=== PATIENT | male | born 1980 | race Caucasian/White ===

== ENCOUNTER 2021-01-01 14:09 | Emergency (ER) | payer OTHER ==
[2021-01-01 16:14] LABS: Absolute Lymphocytes (CBC) 1.5 K/uL (0.7-4.9); Basophils % 0.7 % (0-1.3); Hematocrit 46.9 % (39.6-49.0); Lymphocytes % 15.3 % (15.3-44.8); MPV 9.6 fL (7.6-11.3); RBC Red Blood Cell Count 5.71 M/uL (4.33-5.43)
[2021-01-01 16:22] LABS: Protime INR 0.89
--- NOTE | 2021-01-01 16:23 | RAD REPORT ---
EXAM DESCRIPTION: CT - Head Brain Wo Cont - 01/01/2021 4:09 pm CLINICAL HISTORY: Headache COMPARISON: 2009 TECHNIQUE: Computed axial tomography of the head was obtained. IV contrast was not requested. All CT scans are performed using dose optimization technique as appropriate and may include automated exposure control or mA/KV adjustment according to patient size. FINDINGS: An intracranial bleed is not seen . The ventricles are normal in caliber. No extra-axial fluid collection is noted. Fluid within the sinuses/ mastoids is not seen. IMPRESSION: No acute intracranial abnormality is seen. If patient's symptoms persist MRI of the bra in would be recommended.
[2021-01-01 16:40] LABS: ALT/SGPT 61 U/L (12-78); AST/SGOT 28 U/L (15-37); Alkaline Phosphatase 104 U/L (45-117); BUN Blood Urea Nitrogen 7 mg/dL (7-18); Bicarbonate 28 mmol/L (21-32); Bilirubin Direct 0.1 mg/dL (0-0.2); Bilirubin Total 0.5 mg/dL (0.2-1.0); Glucose Level 82 mg/dL (74-106); Magnesium 2.1 mg/dL (1.8-2.4); NT PRO-BNP 13 pg/mL (<125); Potassium 3.7 mmol/L (3.5-5.1); Protein, Total 7.4 g/dL (6.4-8.2); Sodium Level 139 mmol/L (136-145); Troponin (Emerg Dept Use Only) < 0.02 ng/mL (0.0-0.045)
--- NOTE | 2021-01-01 16:54 | RAD REPORT ---
EXAM DESCRIPTION: Elsi Single View01/01/2021 4:32 pm CLINICAL HISTORY: Hypertension COMPARISON: 2010 FINDINGS: The lungs appear clear of acute infiltrate. The heart is normal size IMPRESSION: No acute abnormalities displayed
--- NOTE | 2021-01-01 16:57 | EDPHYS ---
Physician Documentation [facility] Name: Basil Brantley Age: 40 yrs Sex: Male : 1980 Arrival Date: 01/01/2021 Time: 14:10 Bed 20 Private MD: ED Physician Tom Connor HPI: 01/01 16:12 This 40 yrs old Male presents to ER via EMS with complaints of High Blood kb Pressure. 16:12 The patient has elevated blood pressure and discovered this at home, with a home kb device. Onset: The symptoms/episode began/occurred 1 month(s) ago. Associated signs and symptoms: Pertinent positives: headache, lightheadedness, Pertinent negatives: chest pain, dizziness, dyspnea, nausea, visual changes, vomiting, weakness. Severity of symptoms: At its worst the blood pressure was 160 mm Hg, in the emergency department the blood pressure is improved, 136 mm Hg. The patient has not experienced similar symptoms in the past. The patient has not recently seen a physician. Pt reports he has had elevated blood pressure intermittently for a month. STates he started having headaches so his gf checked his pressure and it was 160/90. States he woke up from a headache last night and felt like his muscles were all tensed up. Feeling started coming back this afternoon so he called 911 to come here for evaluation. Historical: - Allergies: 14:12 No Known Allergies; sv - PSHx: 14:12 ACL reconstruction, Right shoulder repair; sv - Immunization history:: Adult Immunizations up to date. - Social history:: Smoking status: Patient denies any tobacco usage or history of. ROS: 16:10 Constitutional: Negative for fever, chills, and weight loss, Cardiovascular: Negative kb for chest pain, palpitations, and edema, Respiratory: Negative for shortness of breath, cough, wheezing, and pleuritic chest pain, Abdomen/GI: Negative for abdominal pain, nausea, vomiting, diarrhea, and constipation, Skin: Negative for injury, rash, and discoloration. 16:10 MS/extremity: Positive for muscle spasms/cramps. 16:10 Neuro: Positive for headache. Exam: 16:10 Constitutional: This is a well developed, well nourished patient who is awake, alert, kb and in no acute distress. Head/Face: Normocephalic, atraumatic. Eyes: Pupils equal round and reactive to light, extra-ocular motions intact. Lids and lashes normal. Conjunctiva and sclera are non-icteric and not injected. Cornea within normal limits. Periorbital areas with no swelling, redness, or edema. Chest/axilla: Normal chest wall appearance and motion. Nontender with no deformity. No lesions are appreciated. Cardiovascular: Regular rate and rhythm with a normal S1 and S2. No gallops, murmurs, or rubs. Normal PMI, no JVD. No pulse deficits. Respiratory: Lungs have equal breath sounds bilaterally, clear to auscultation and percussion. No rales, rhonchi or wheezes noted. No increased work of breathing, no retractions or nasal flaring. Abdomen/GI: Soft, non-tender, with normal bowel sounds. No distension or tympany. No guarding or rebound. No evidence of tenderness throughout. Skin: Warm, dry with normal turgor. Normal color with no rashes, no lesions, and no evidence of cellulitis. MS/ Extremity: Pulses equal, no cyanosis. Neurovascular intact. Full, normal range of motion. Neuro: Awake and alert, GCS 15, oriented to person, place, time, and situation. Cranial nerves II-XII grossly intact. Motor strength 5/5 in all extremities. Sensory grossly intact. Cerebellar exam normal. Normal gait. 16:10 ECG was reviewed by the Attending Physician. Vital Signs: 14:12 BP 136 / 86; Pulse 72; Resp 16; Temp 98.7; Pulse Ox 100% ; Weight 86.18 kg; Height 5 sv ft. 7 in. (170.18 cm); 16:30 BP 130 / 82; Pulse 82; Resp 16; Pulse Ox 100% on R/A; zb 14:12 Body Mass Index 29.76 (86.18 kg, 170.18 cm) sv MDM: 15:40 Patient medically screened. kb 16:10 Data reviewed: vital signs, nurses notes. Data interpreted: Pulse oximetry: on room air kb is 100 %. Interpretation: normal. 16:56 Counseling: I had a detailed discussion with the patient and/or guardian regarding: the kb historical points, exam findings, and any diagnostic results supporting the discharge/admit diagnosis, lab results, radiology results, the need for outpatient follow up, a family practitioner, to return to the emergency department if symptoms worsen or persist or if there are any questions or concerns that arise at home. 01/01 15:50 Order name: Basic Metabolic Panel kb 01/01 15:50 Order name: CBC with Diff kb 01/01 15:50 Order name: LFT's kb 01/01 15:50 Order name: Magnesium; Complete Time: 16:44 kb 01/01 15:50 Order name: NT PRO-BNP; Complete Time: 16:44 kb 01/01 15:50 Order name: PT-INR; Complete Time: 16:31 kb 01/01 15:50 Order name: Troponin (emerg Dept Use Only); Complete Time: 16:44 kb 01/01 15:50 Order name: XRAY Chest (1 view); Complete Time: 16:57 kb 01/01 15:50 Order name: EKG; Complete Time: 15:51 kb 01/01 15:50 Order name: Cardiac monitoring; Complete Time: 15:59 kb 01/01 15:50 Order name: CT Head Brain wo Cont; Complete Time: 16:26 kb 01/01 15:50 Order name: Basic Metabolic Panel; Complete Time: 16:44 EDMS 01/01 15:50 Order name: CBC with Automated Diff; Complete Time: 16:17 EDMS 01/01 15:50 Order name: Liver (Hepatic) Function; Complete Time: 16:44 EDMS 01/01 15:50 Order name: EKG - Nurse/Tech; Complete Time: 15:59 kb 01/01 15:50 Order name: IV Saline Lock; Complete Time: 15:59 kb 01/01 15:50 Order name: Labs collected and sent; Complete Time: 16:07 kb 01/01 15:50 Order name: O2 Per Protocol; Complete Time: 15:59 kb 01/01 15:50 Order name: O2 Sat Monitoring; Complete Time: 15:59 kb EC:10 Rate is 51 beats/min. Rhythm is regular. QRS Effie is Normal. VT interval is normal at kb 150 msec. QRS interval is normal at 98 msec. QT interval is normal at 384 msec. Administered Medications: No medications were administered Disposition: 17:31 Co-signature as Attending Physician, Tom Connor MD I agree with the assessment and kdr plan of care. Disposition: 01/01/21 16:56 Discharged to Home. Impression: Essential (primary) hypertension. - Condition is Stable. - Discharge Instructions: Hypertension, Knet-[id number], Managing Your Hypertension. - Medication Reconciliation Form, Thank You Letter, Antibiotic Education, Prescription Opioid Use form. - Follow up: Emergency Department; When: As needed; Reason: Worsening of condition. Follow up: Private Physician; When: 2 - 3 days; Reason: Recheck today's complaints, Continuance of care, Re-evaluation by your physician. Signatures: Dispatcher [employer] EDMS Nancy Hackett, LUCIA-C CHART SNATCHER-Talia Birmingham, RN RN sv Tom Connor MD MD kdr Brown, Zipporah, RN RN zb Corrections: (The following items were deleted from the chart) 17:17 16:56 01/01/2021 16:56 Discharged to Home. Impression: Essential (primary) zb hypertension. Condition is Stable. Forms are Medication Reconciliation Form, Thank You Letter, Antibiotic Education, Prescription Opioid Use. Follow up: Emergency Department; When: As needed; Reason: Worsening of condition. Follow up: Private Physician; When: 2 - 3 days; Reason: Recheck today's complaints, Continuance of care, Re-evaluation by your physician. kb
--- NOTE | 2021-01-01 16:57 | ER ---
Nurse's Notes [facility] Name: Basil Brantley Age: 40 yrs Sex: Male : 1980 Arrival Date: 01/01/2021 Time: 14:10 Bed 20 Private MD: Diagnosis: Essential (primary) hypertension Presentation: 01/01 14:10 Chief complaint: Patient states: HTN that has been ongoing for months, no hx of HTN. sv Reports that his veins have been changing. Today he was at home and felt sick. On EMS arrival his BP was 186/90 HR-112with occassional PVCs, after calming him down and having him sit down for a while his BP after was 146/78 HR-80s with no PVCs. Coronavirus screen: Client denies travel out of the [place] in the last 14 days. At this time, the client does not indicate any symptoms associated with coronavirus-19. Ebola Screen: No symptoms or risks identified at this time. Risk Assessment: Do you want to hurt yourself or someone else? Patient reports no desire to harm self or others. Onset of symptoms was January 01, 2021. 14:10 Method Of Arrival: EMS: [facility] sv 14:10 Acuity: ELENA 3 sv 14:12 Initial Sepsis Screen: Does the patient meet any 2 criteria? No. Patient's initial sv sepsis screen is negative. Does the patient have a suspected source of infection? No. Patient's initial sepsis screen is negative. Triage Assessment: 14:10 General: Appears in no apparent distress. comfortable, well developed, Behavior is sv calm, cooperative, appropriate for age. Pain: Denies pain. Neuro: Level of Consciousness is awake, alert, obeys commands, Oriented to person, place, time, situation, Gait is steady. Respiratory: Respiratory effort is even, unlabored. Historical: - Allergies: 14:12 No Known Allergies; sv - PSHx: 14:12 ACL reconstruction, Right shoulder repair; sv - Immunization history:: Adult Immunizations up to date. - Social history:: Smoking status: Patient denies any tobacco usage or history of. Screenin:14 Abuse screen: Denies threats or abuse. Denies injuries from another. Nutritional zb screening: No deficits noted. Tuberculosis screening: No symptoms or risk factors identified. Fall Risk None identified. Assessment: 17:13 General: Appears in no apparent distress. comfortable, Behavior is calm, cooperative, zb appropriate for age. Pain: Complains of pain in headache. Neuro: Level of Consciousness is awake, alert, obeys commands, Oriented to person, place, time, situation, Reports dizziness. Cardiovascular: Capillary refill < 3 seconds in bilateral Patient's skin is warm and dry. Respiratory: Airway is patent Respiratory effort is even, unlabored, Respiratory pattern is regular, symmetrical. GI: Abdomen is flat, non-distended. : No signs and/or symptoms were reported regarding the genitourinary system. EENT: No signs and/or symptoms were reported regarding the EENT system. Derm: Skin is healthy with good turgor, Skin is dry, Skin is normal, Skin temperature is warm. Musculoskeletal: Circulation, motion, and sensation intact. Range of motion: intact in all extremities. Vital Signs: 14:12 BP 136 / 86; Pulse 72; Resp 16; Temp 98.7; Pulse Ox 100% ; Weight 86.18 kg; Height 5 sv ft. 7 in. (170.18 cm); 16:30 BP 130 / 82; Pulse 82; Resp 16; Pulse Ox 100% on R/A; zb 14:12 Body Mass Index 29.76 (86.18 kg, 170.18 cm) sv ED Course: 14:10 Patient arrived in ED. sv 14:11 Triage completed. sv 14:12 Arm band placed on. sv 15:40 Nancy Hackett FNP-C is [facility]. kb 15:40 Tom Connor MD is Attending Physician. kb 15:42 Kathi Mart, DANIEL is Primary Nurse. zb 16:09 CT Head Brain wo Cont In Process Unspecified. EDMS 16:32 XRAY Chest (1 view) In Process Unspecified. EDMS 17:14 Patient has correct armband on for positive identification. code machine operator on. Pulse zb ox on. NIBP on. Door closed. Noise minimized. 17:14 No provider procedures requiring assistance completed. IV discontinued, intact, zb bleeding controlled, No redness/swelling at site. Pressure dressing applied. Administered Medications: No medications were administered Outcome: 16:56 Discharge ordered by . kb 17:15 Discharged to home ambulatory. zb 17:15 Condition: stable 17:15 Discharge instructions given to patient, Instructed on discharge instructions, follow up and referral plans. Demonstrated understanding of instructions, follow-up care. 17:17 Patient left the ED. zb Signatures: Dispatcher [employer] EDNancy Dickson, Talia Schreiber RN RN sv Brown, Zipporah, RN RN zb Corrections: (The following items were deleted from the chart) 14:23 14:10 Chief complaint: Patient states: HTN that has been ongoing for months, no hx of sv HTN. Reports that his veins have been changing. Today he was at home and felt sick. On EMS arrival his BP was 186/90 HR-112, after calming him down and having him sit down for a while his BP after was 146/78 HR-80s. sv
[2021-01-01 17:31] VITALS: TEMP 98.7; O2SAT 100
[2021-01-01 17:32] VITALS: BP 130/82
== END 2021-01-01 17:17 | disposition home or self-care (01) ==
LOC: ER 14:09
DX: I10 Essential (primary) hypertension (principal)
CPT/HCPCS: 36415; 70450; 71045; 80048; 80076; 83735; 83880; 84484; 85025; 85610; 93005; 99284

== ENCOUNTER 2022-02-15 12:34 | Emergency (ER) | payer BC, OTHER ==
--- OUTSIDE RECORDS SUMMARY | 2022-02-15 12:36 | XMS REPORT | Continuity of Care Document ---
:1980 Author Organization [facility] t Address [address] [place] [address] Care Team Providers Name Role Phone Pcp, Does Not Have A Primary Care Physician Doctor Unassigned, Name Attending Clinician Unavailable Therapy, Covid Infusion Attending Clinician Unavailable Justin GOMEZ, A Attending Clinician Javier ANDERSON Attending Clinician Unavailable Problems This patient has no known problems. Allergies, Adverse Reactions, Alerts Allergy Allergy Status Severity Reaction(s) Onset Inactive Treating Comm ents Source Name Type Date Date Clinician NO KNOWN Drug Active Univers ALLERGIE Class ity [facility] Social History Social Habit Start Date Stop Date Quantity Comments Source Exposure to Yes [facility] SARS-CoV-2 (event) Medica l Branch Sex Assigned At [birth year] [facility] 00:00:00 00:00:00 [facility] Smoking Status Start Date Stop Date Source Unknown if ever smoked [facility] Medications This patient has no known medications. Vital Signs Vital Name Observation Time Observation Value Comments Source Systolic blood 2021-07-19 17:10:00 142 mm[Hg] Univer sity [facility] Diastolic blood 2021-07-19 17:10:00 87 mm[Hg] Unive rsity [facility] Heart rate 2021-07-19 17:10:00 70 /min [facility] Body temperature 2021-07-19 17:10:00 [facility].89 [facility] Respiratory rate 2021-07-19 17:10:00 18 /min [facility] Oxygen saturation in 2021-07-19 17:10:00 100 /min [facility] Arterial blood by [facility] Pulse oximetry Branch Body height 2021-07-19 16:28:00 167.6 cm [facility] Body weight 2021-07-19 16:28:00 80.287 kg [facility] BMI 2021-07-19 16:28:00 28.57 kg/m2 [facility] Systolic blood 2021-07-19 16:28:00 134 mm[Hg] Univer sity of pressure [facility] Diastolic blood 2021-07-19 16:28:00 77 mm[Hg] Unive rsity of [facility] Heart rate 2021-07-19 16:28:00 76 /min [facility] Body temperature 2021-07-19 16:28:00 36.89 [place] [facility] Respiratory rate 2021-07-19 16:28:00 19 /min [facility] Oxygen saturation in 2021-07-19 16:28:00 98 /min [facility] Arterial blood by [facility] Pulse oximetry Branch Procedures Procedure Date / Time Performed Performing Clinician Claudio e [id number] CONSENT 2021-07-22 05:01:00 [facility] Start End Encounter Admission Attending Care Care Encounter Source Date/Time Date/Time Type Type Clinicians Facility Department ID 2021-07-22 2021-07-22 Orders Doctor TRISTAN [id number] Univers 00:00:00 00:00:00 Only Unassigned, NICOLE [id number] ity of [place] [facility] [id number] Daren as [phone] [facility] 009 Branch 2021-07-19 2021-07-19 Nurse Therapy, Adc Covid Infusion [facility] [id number] Univers 10:06:24 11:06:24 Visit Giovani Anderson [id number] [facility] [place] [id number] [id number] [place] [id number] Branch 2021-07-19 2021-07-19 Outpatient R [facility] [id number] Univers 11:00:00 11:00:00 GIOVANI weaver [facility] Results This patient has no known results.
[2022-02-15] MEDS ORDERED: METHYLPREDNISOLONE 125 MG INJ ONE (12:58)
[2022-02-15] MEDS ORDERED: HYDROCODONE/CHLORPHEN 5 ML/OSYR ONE (12:58)
[2022-02-15] MEDS ORDERED: ALBUTEROL 2.5 MG/3 ML NEB SOL ONE (12:59)
--- NOTE | 2022-02-15 13:36 | RAD REPORT ---
EXAM DESCRIPTION: RAD - Chest Pa And Lat (2 Views) - 02/15/2022 1:22 pm CLINICAL HISTORY: Cough;SOB COMPARISON: No comparisonsChest Single View dated 01/01/2021; CHEST SINGLE VIEW dated 10/18/2011; BRANNON ST PA AND LAT 2 VIEW dated 01/27/2010; CHEST SINGLE VIEW dated 12/17/2009 FINDINGS: Lines: None. Lungs: No evidence of edema or pneumonia. Pleural: No significant pleural effusions or pneumothorax. Cardiac: The heart size is within normal limits. Bones: No acute fractures. Other: IMPRESSION: No acute cardiopulmonary disease.
--- NOTE | 2022-02-15 14:35 | EDPHYS ---
Physician Documentation [facility] Name: Basil Brantley Age: 41 yrs Sex: Male : 1980 Arrival Date: 02/15/2022 Time: 12:35 Bed 8 Private MD: ED Physician Rafael Simmons HPI: 02/15 13:06 This 41 yrs old Male presents to ER via EMS with complaints of Shortness Of Breath. pm1 13:06 The patient has shortness of breath and the patient has a history of bronchitis DX last pm1 week. Onset: The symptoms/episode began/occurred 2 week(s) ago. Duration: The symptoms are continuous. The patient's shortness of breath is aggravated by nothing, is alleviated by nothing. Associated signs and symptoms: Pertinent positives: productive cough, Pertinent negatives: chest pain, fever, nausea, vomiting. Severity of symptoms: in the emergency department the symptoms are worse. The patient has been recently seen by a physician: with similar presenting complaints, and apparently given a diagnosis of Bronchitis [facility]. Historical: - Allergies: 12:38 No Known Allergies; ww - Home Meds: 12:38 Adderall XR Oral [Active]; ww - PMHx: 12:38 ADD; ww - PSHx: 12:38 shoulder; knee; nose; ww - Immunization history:: Adult Immunizations not up to date. - Social history:: Smoking status: Patient denies any tobacco usage or history of. ROS: 13:06 Constitutional: Negative for fever, chills, and weight loss, Eyes: Negative for injury, pm1 pain, redness, and discharge, ENT: Negative for injury, pain, and discharge, Cardiovascular: Negative for chest pain, palpitations, and edema. 13:06 Back: Negative for injury and pain, MS/Extremity: Negative for injury and deformity, Skin: Negative for injury, rash, and discoloration, Neuro: Negative for headache, weakness, numbness, tingling, and seizure. 13:06 Respiratory: Positive for cough, Negative for shortness of breath. 13:06 Abdomen/GI: Negative for abdominal pain, nausea, vomiting, and diarrhea. 13:06 All other systems are negative. Exam: 13:06 Constitutional: This is a well developed, well nourished patient who is awake, alert, pm1 and in no acute distress. Head/Face: Normocephalic, atraumatic. 13:06 Skin: Warm, dry with normal turgor. Normal color with no rashes, no lesions, and no evidence of cellulitis. MS/ Extremity: Pulses equal, no cyanosis. Neurovascular intact. Full, normal range of motion. 13:06 Eyes: Exam is negative for acute changes, Periorbital structures: appear normal, Extraocular movements: intact throughout. 13:06 ENT: Mouth: no acute changes, Lips: normal, moist, Oral mucosa: normal, pink and intact, moist. 13:06 Cardiovascular: Exam negative for acute changes, Rate: normal, Rhythm: regular, Pulses: no pulse deficits are appreciated. 13:06 Respiratory: Exam negative for acute changes, respiratory distress, shortness of breath. 13:06 Neuro: Exam negative for Orientation: is normal, Memory: is normal, Motor: moves all fours. Vital Signs: 12:35 BP 139 / 94; Pulse 93; Resp 17; Temp 97.6; Pulse Ox 100% ; Weight 79.38 kg; Height 5 ww ft. 7 in. (170.18 cm); 14:19 BP 128 / 79; Pulse 65; Resp 17; Pulse Ox 100% ; Pain 0/10; jh6 12:35 Body Mass Index 27.41 (79.38 kg, 170.18 cm) ww MDM: 12:36 Patient medically screened. [facility] 14:33 Data reviewed: vital signs. Data interpreted: Pulse oximetry: on room air is 100 %. pm1 Interpretation: normal. Counseling: I had a detailed discussion with the patient and/or guardian regarding: the historical points, exam findings, and any diagnostic results supporting the discharge/admit diagnosis, radiology results. 14:42 ED course: PMPaware reveiwed. patient with guifensen AC on 02/07 and has taken only one pm1 dose. Will not represcribe. 02/15 12:52 Order name: Chest Pa And Lat (2 Views) XRAY; Complete Time: 13:41 pm1 Administered Medications: 13:02 Drug: Albuterol - atroVENT (ipratropium) (3:1) (2.5 mg - 0.5 mg) 3 ml Route: Nebulizer; [facility] 14:16 Follow up: Response: No adverse reaction [facility] 13:02 Drug: SOLU-Medrol (methylPrednisoLONE) 125 mg Route: IVP; Site: right antecubital; 6 14:15 Follow up: Response: No adverse reaction [facility] 13:02 Drug: Tussionex Pennkinetic ER (chlorpheniramine-hydrocodone) Suspension 5 ml Route: PO;6 14:16 Follow up: Response: Pain is decreased jh6 Disposition Summary: 02/15/22 14:34 Discharge Ordered Location: Home pm1 Problem: new pm1 Symptoms: have improved pm1 Condition: Stable pm1 Diagnosis - Acute bronchitis, unspecified pm1 Followup: pm1 - With: Emergency Department - When: As needed - Reason: Worsening of condition Followup: pm1 - With: Private Physician - When: 2 - 3 days - Reason: Recheck today's complaints, Continuance of care, Re-evaluation by your physician Discharge Instructions: - Discharge Summary Sheet pm1 - Acute Bronchitis, Adult pm1 Forms: - Medication Reconciliation Form pm1 - Thank You Letter pm1 - Antibiotic Education pm1 - Prescription Opioid Use pm1 - Work release form eb Prescriptions: - Ventolin HFA 90 mcg/actuation Inhalation HFA aerosol inhaler - inhale 2 puff by INHALATION route every 4-6 hours As needed; 1 Inhaler; pm1 Refills: 0, Product Selection Permitted - Medrol (Ronald) 4 mg Oral Tablets, Dose Pack - take 1 tablet by ORAL route as directed - follow package instructions; 1 pm1 packet; Refills: 0, Product Selection Permitted Addendum: 02/18/2022 07:14 Co-signature as Attending Physician, Rafael Simmons MD I agree with the assessment and c kowalski plan of care. Signatures: Dispatcher [employer] Rafael Harley MD MD cha Marinas, Patrick, AYE SOIL SCIENCE PROFESSOR pm1 Shirlene Urbina RN RN jh6 Teresa Cleary RN RN ww
--- NOTE | 2022-02-15 14:35 | ER ---
Nurse's Notes [facility] Name: Basil Brantley Age: 41 yrs Sex: Male : 1980 Arrival Date: 02/15/2022 Time: 12:35 Bed 8 Private MD: Diagnosis: Acute bronchitis, unspecified Presentation: 02/15 12:35 Chief complaint: Patient states: Shortness of breath. Diagnosis with Bronchitis last ww week at [place] and was discharged home with a ZPak and Predinose and completed yesterday. This morning he woke up and started coughing, developed shortness of breath and heaviness on the right side of his chest. PCP is [facility]. Coronavirus screen: Vaccine status: Patient reports being unvaccinated. Client denies travel out of the [place] in the last 14 days. Ebola Screen: Patient denies travel to an Ebola-affected area in the 21 days before illness onset. Initial Sepsis Screen: Does the patient meet any 2 criteria? No. Patient's initial sepsis screen is negative. Does the patient have a suspected source of infection? No. Patient's initial sepsis screen is negative. Risk Assessment: Do you want to hurt yourself or someone else? Patient reports no desire to harm self or others. Onset of symptoms is unknown. 12:35 Method Of Arrival: EMS: [facility] 12:35 Acuity: ELENA 3 ww Triage Assessment: 12:38 General: Appears in no apparent distress. Behavior is cooperative, anxious. Pain: ww Complains of pain in anterior aspect of right upper chest. Neuro: Level of Consciousness is awake, alert, obeys commands, Oriented to person, place, time, situation, Moves all extremities. Speech is normal. Cardiovascular: Capillary refill < 3 seconds Patient's skin is warm and dry. Respiratory: Reports shortness of breath cough that is Airway is patent Respiratory effort is even, unlabored, Respiratory pattern is regular, symmetrical, Onset: The symptoms/episode began/occurred gradually, the patient has mild shortness of breath. GI: No signs and/or symptoms were reported involving the gastrointestinal system. : No signs and/or symptoms were reported regarding the genitourinary system. Derm: Skin is intact, Skin is pink, warm \T\ dry. Historical: - Allergies: 12:38 No Known Allergies; ww - Home Meds: 12:38 Adderall XR Oral [Active]; ww - PMHx: 12:38 ADD; ww - PSHx: 12:38 shoulder; knee; nose; ww - Immunization history:: Adult Immunizations not up to date. - Social history:: Smoking status: Patient denies any tobacco usage or history of. Screenin:40 Abuse screen: Denies threats or abuse. Denies injuries from another. Nutritional ww screening: No deficits noted. Tuberculosis screening: No symptoms or risk factors identified. Fall Risk None identified. Assessment: 12:40 Reassessment: No changes from previously documented assessment. see Triage note. ww 14:16 Reassessment: Patient is alert, oriented x 3, equal unlabored respirations, skin jh6 warm/dry/pink. Patient states feeling better. Patient states symptoms have improved. Cardiovascular: No deficits noted. Respiratory: No deficits noted. Airway is patent Respiratory effort is even, unlabored, Breath sounds are clear. 14:35 Reassessment: Patient appears in no apparent distress at this time. No changes from previously documented assessment. Patient and/or family updated on plan of care and expected duration. Pain level reassessed. Cardiovascular: Rhythm is regular. Vital Signs: 12:35 BP 139 / 94; Pulse 93; Resp 17; Temp 97.6; Pulse Ox 100% ; Weight 79.38 kg; Height 5 ww ft. 7 in. (170.18 cm); 14:19 BP 128 / 79; Pulse 65; Resp 17; Pulse Ox 100% ; Pain 0/10; jh6 12:35 Body Mass Index 27.41 (79.38 kg, 170.18 cm) Vitals: 14:19 Cardiac Rhythm Assessment Regular. 6 ED Course: 12:35 Patient arrived in ED. ds1 12:36 Mendoza Scott NP is PHCP. pm1 12:36 Rafael Simmons MD is Attending Physician. pm1 12:38 Triage completed. ww 12:38 Arm band placed on. ww 12:40 Patient has correct armband on for positive identification. Bed in low position. Call light in reach. Side rails up X 1. Pulse ox on. NIBP on. 12:45 Warm blanket given. jw7 12:45 Inserted saline lock: 20 gauge in right antecubital area, using aseptic technique. jw7 13:24 Chest Pa And Lat (2 Views) XRAY In Process Unspecified. EDDC 14:16 Shirlene Urbina, RN is Primary Nurse. jh6 14:47 No provider procedures requiring assistance completed. jh6 14:47 IV discontinued, intact, bleeding controlled, No redness/swelling at site. Pressure jh6 dressing applied. Administered Medications: 13:02 Drug: Albuterol - atroVENT (ipratropium) (3:1) (2.5 mg - 0.5 mg) 3 ml Route: Nebulizer; jh6 14:16 Follow up: Response: No adverse reaction jh6 13:02 Drug: SOLU-Medrol (methylPrednisoLONE) 125 mg Route: IVP; Site: right antecubital; jh6 14:15 Follow up: Response: No adverse reaction 6 13:02 Drug: Tussionex Pennkinetic ER (chlorpheniramine-hydrocodone) Suspension 5 ml Route: PO;jh6 14:16 Follow up: Response: Pain is decreased [facility] Outcome: 14:34 Discharge ordered by MD. pm1 14:47 Discharged to home ambulatory. jh6 14:47 Condition: improved 14:47 Discharge instructions given to patient, Instructed on discharge instructions, follow up and referral plans. Demonstrated understanding of instructions, follow-up care, medications, Prescriptions given X 2. 14:47 Patient left the ED. [facility] Signatures: Dispatcher [employer] [facility] Faye Kiser ds1 Mendoza Scott, AYE SOLE RUFFER pm1 Shirlene Urbina, DANIEL RN 6 Teresa Cleary RN RN ww Waits, Jodi 7
[2022-02-15 15:09] VITALS: TEMP 97.6; O2SAT 100
[2022-02-15 15:10] VITALS: BP 128/79
== END 2022-02-15 14:47 | disposition home or self-care (01) ==
LOC: ER 12:34
DX: J20.9 Acute bronchitis, unspecified (principal)
CPT/HCPCS: 71046; 94640; 96374; 99284; J2930

== ENCOUNTER 2022-05-14 19:40 | Emergency (ER) | payer BC, OTHER ==
--- OUTSIDE RECORDS SUMMARY | 2022-05-14 19:43 | XMS REPORT | Continuity of Care Document ---
:1980 Author Organization [facility] t Address [address] [place] [address] Care Team Providers Name Role Phone Pcp, [...] KNOWN Drug Active Univers [facility]ERGIE Class ity [facility] Social History Social Habit Start Date Stop Date Quantity Comments Source Exposure to Yes [facility] SARS-CoV-2 (event) Medica l Branch Sex Assigned At [birth year] [facility] 00:00:00 00:00:00 [facility] Smoking Status Start Date Stop Date Source Unknown if ever smoked General acute hospital Medications This patient has no known medications. Vital Signs Vital Name Observation Time Observation Value Comments Source Systolic blood 2021-07-19 17:10:00 142 mm[Hg] Univer sity [facility] Diastolic blood 2021-07-19 17:10:00 87 mm[Hg] Unive rsity [facility] Heart rate 2021-07-19 17:10:00 70 /min [facility] Body temperature 2021-07-19 17:10:00 36.89 [facility] Respiratory rate 2021-07-19 17:10:00 18 /min [facility] Oxygen saturation in 2021-07-19 17:10:00 100 /min [facility] of Arterial blood by [facility] Pulse oximetry Branch Body height 2021-07-19 16:28:00 167.6 cm [facility] Body weight 2021-07-19 16:28:00 80.287 kg [facility] BMI 2021-07-19 16:28:00 28.57 kg/m2 [facility] Systolic blood 2021-07-19 16:28:00 134 mm[Hg] Univer sity of pressure [facility] Diastolic blood 2021-07-19 16:28:00 77 mm[Hg] Unive rsity of [facility] Heart rate 2021-07-19 16:28:00 76 /min [facility] Body temperature 2021-07-19 16:28:00 36.89 [place] [facility] Respiratory rate 2021-07-19 16:28:00 19 /min [facility] Oxygen saturation in 2021-07-19 16:28:00 98 /min [facility] Arterial blood by [facility] Pulse oximetry Branch Procedures Procedure Date / Time Performed Performing Clinician Claudio e [id number] CONSENT 2021-07-22 05:01:00 [facility] Start End Encounter Admission Attending Care Care Encounter Source Date/Time Date/Time Type Type Clinicians Facility Department ID 2021-07-22 2021-07-22 Orders Doctor TRISTAN [id number] Univers 00:00:00 00:00:00 Only Unassigned, NICOLE [id number] ity of [place] [facility] [id number] Daren as [id number] [facility] 009 Branch 2021-07-19 2021-07-19 Nurse Therapy, Adc Covid Infusion [facility] [id number] Univers 10:06:24 11:06:24 Visit Giovani Anderson [id number] [id number] [id number] [place] [id number] Branch 2021-07-19 2021-07-19 Outpatient R JUST[facility] [id number] Univers 11:00:00 11:00:00 GIOVANI weaver [facility] Results This patient has no known results.
[2022-05-14 20:34] LABS: Absolute Lymphocytes (CBC) 1.7 K/uL (0.7-4.9); Hematocrit 41.3 % (39.6-49.0); Lymphocytes % 34.1 % (15.3-44.8); MPV 8.9 fL (7.6-11.3); RBC Red Blood Cell Count 5.15 M/uL (4.33-5.43)
--- NOTE | 2022-05-14 20:34 | RAD REPORT ---
EXAM DESCRIPTION: RAD - Chest Single View - 05/14/2022 8:23 pm CLINICAL HISTORY: CHEST PAIN COMPARISON: Chest Pa And Lat (2 Views) dated 02/15/2022; Chest Single View dated 01/01/2021; CHEST SIN GLE VIEW dated 10/18/2011; CHEST PA AND LAT 2 VIEW dated 01/27/2010 FINDINGS: Lines: None. Lungs: No evidence of edema or pneumonia. Pleural: No significant pleural effusions or pneumothorax. Cardiac: The heart size is within normal limits. Bones: No acute fractures. Other: IMPRESSION: No acute cardiopulmonary disease.
[2022-05-14 20:35] LABS: Urine Blood Negative (Negative); Urine Glucose Negative (Negative); Urine Protein Negative (Negative)
[2022-05-14 20:41] LABS: Protime INR 0.92
[2022-05-14 20:49] LABS: Barbiturates NEGATIVE (NEGATIVE); Benzodiazepines NEGATIVE (NEGATIVE); Cocaine NEGATIVE (NEGATIVE); METHAMPHETAM POSITIVE (NEGATIVE); Methadone NEGATIVE (NEGATIVE); Opiates POSITIVE (NEGATIVE); Phencyclidine NEGATIVE (NEGATIVE); THC Cannibis NEGATIVE (NEGATIVE)
[2022-05-14 21:01] LABS: Albumin 3.4 g/dL (3.4-5.0); Bilirubin Direct 0.1 mg/dL (0-0.2); Bilirubin Total 0.5 mg/dL (0.2-1.0); Potassium 3.3 mmol/L (3.5-5.1); Protein, Total 6.3 g/dL (6.4-8.2); Troponin High Sensitivity 3.8 pg/mL (<58.9)
--- NOTE | 2022-05-14 21:56 | RAD REPORT ---
EXAM DESCRIPTION: CTAngio Aorta For Dissection - 05/14/2022 9:36 pm CLINICAL HISTORY: Chest pain COMPARISON: No comparisons TECHNIQUE: CTA of the chest, abdomen, and pelvis was performed with contrast. MIPS were performed. All CT scans are performed using dose optimization technique as appropriate and may include automated exposure control or mA/KV adjustment according to patient size. FINDINGS: Thorax: Chest Wall: No abnormal mass Lungs: No acute abnormality. Pleura: No effusions or pneumothorax. Diamond/Mediastinum: No lymphadenopathy. Aorta/Pulmonary Arteries: Unremarkable Heart: Normal size. Abdomen/Pelvis: Liver: No acute abnormality or suspicious lesions. Biliary: No biliary ductal dilatation. Stomach: No significant focal abnormality. Duodenum: No significant focal abnormality. Pancreas: No significant abnormality. Spleen: No significant abnormality. Adrenal: No suspicious lesions. Kidney/ureter: No hydronephrosis. No renal calculi. Retroperitoneum: No retroperitoneal adenopathy. Vascular: No aneurysm. Bowel: No significant focal abnormality. Peritoneum: No ascites or free air. Bladder: Thickening along the right aspect of the bladder may be due to mass effect by the adjacent s igmoid colon simulating thickening. See image 47, series 404. Also see image 163, series 401. Reproductive: No adnexal masses. Bones: No acute fracture. Other: n/a IMPRESSION: No acute findings within the chest, abdomen, or pelvis. Specifically, no aortic aneurysm , aortic dissection, or pulmonary embolus identified. Possible bladder wall mucosal lesion. Correlate with urinalysis. If abnormal, suggest cystoscopy for further evaluation.
--- NOTE | 2022-05-14 22:26 | ER ---
Nurse's Notes [facility] Name: Basil Brantley Age: 42 yrs Sex: Male : 1980 Arrival Date: 05/14/2022 Time: 19:43 Bed 15 Private MD: Diagnosis: Chest pain, unspecified Presentation: 05/14 19:43 Chief complaint: Patient states: SOB/CP/NUMBNESS TO LEFT NECK AND ARM. Coronavirus [facility] screen: Vaccine status: Patient reports being unvaccinated. COVID 4 WEEKS AGO Client denies travel out of the [place] in the last 14 days. Ebola Screen: Patient negative for fever greater than or equal to 101.5 degrees Fahrenheit, and additional compatible Ebola Virus Disease symptoms. Initial Sepsis Screen: Does the patient meet any 2 criteria? No. Patient's initial sepsis screen is negative. Does the patient have a suspected source of infection? No. Patient's initial sepsis screen is negative. Risk Assessment: Do you want to hurt yourself or someone else? Patient reports no desire to harm self or others. Onset of symptoms was May 14, 2022. 19:43 Method Of Arrival: EMS: [facility] 19:43 Acuity: ELENA 3 [facility] Triage Assessment: 19:52 General: Appears distressed, CRYING. Behavior is crying. Pain: Denies pain. [facility] Historical: - Home Meds: 19:52 Adderall XR Oral [Active]; 1 - PMHx: 19:52 ADD; [facility] - PSHx: 19:52 knee; Nose; Shoulder; 1 - Immunization history:: Adult Immunizations unknown. - Social history:: Smoking status: Patient reports the use of cigarette tobacco products, smokes one pack cigarettes per day. Screenin:53 Abuse screen: Denies threats or abuse. Nutritional screening: No deficits noted. [facility] Tuberculosis screening: No symptoms or risk factors identified. Fall Risk None identified. Assessment: 19:53 Reassessment: No changes from previously documented assessment. Cardiovascular: No [facility] deficits noted. Respiratory: No deficits noted. Vital Signs: 19:43 BP 160 / 98; Pulse 99; Resp 20; Temp 98.3; Pulse Ox 99% on R/A; Weight 83.91 kg; Height [facility] 5 ft. 9 in. (175.26 cm); 20:36 BP 132 / 81; Pulse 80; Resp 18; Pulse Ox 98% on R/A; bh1 21:42 BP 132 / 92; Pulse 75; Resp 20; Temp 98.6(O); Pulse Ox 96% on R/A; bh1 22:38 BP 129 / 86; Pulse 88; Resp 20; Temp 98.6(O); Pulse Ox 100% on R/A; bh1 19:43 Body Mass Index 27.32 (83.91 kg, 175.26 cm) 1 ED Course: 19:43 Patient arrived in ED. ds4 19:43 Bryanna Capellan, DANIEL is Primary Nurse. bh1 19:45 Mendoza Scott NP is PHCP. pm1 19:45 Rafael Simmons MD is Attending Physician. pm1 19:52 Triage completed. 1 19:52 Arm band placed on left wrist. bh1 19:53 Patient has correct armband on for positive identification. Bed in low position. Call [facility] light in reach. Side rails up X2. monitor and storage bin tender on. Pulse ox on. NIBP on. 19:53 No provider procedures requiring assistance completed. Inserted saline lock: 20 gauge bh1 in right forearm, using aseptic technique. 20:25 XRAY Chest (1 view) In Process Unspecified. EDMS 20:35 UDS Sent. bh1 20:35 Basic Metabolic Panel Sent. bh1 20:35 CBC with Diff Sent. bh1 20:35 LFT's Sent. bh1 20:35 NT PRO-BNP Sent. bh1 20:35 Magnesium Sent. bh1 20:35 PT-INR Sent. bh1 20:35 Troponin HS Sent. bh1 20:36 No apparent distress. Awaiting lab results, Awaiting radiology results. bh1 21:[address] bh1 21:38 CT Aorta for Dissection In Process Unspecified. EDMS 21:43 No apparent distress. Resting quietly. Awaiting lab results. bh1 22:39 IV discontinued, intact, bleeding controlled, No redness/swelling at site. bh1 Administered Medications: No medications were administered Medication: 19:53 VIS not applicable for this client. [facility] Outcome: 22:26 Discharge ordered by . pm1 22:38 Discharged to home ambulatory. bh1 22:38 Condition: good 22:38 Discharge instructions given to patient, Instructed on discharge instructions, follow up and referral plans. medication usage, Demonstrated understanding of instructions, follow-up care, medications, Prescriptions given X 1. 22:39 Patient left the ED. [facility] Signatures: Dispatcher [employer] [place] ds4 Mendoza Scott NP [employer]ING [employer] HAND[employer]ER pm1 Bryanna Capellan, RN RN 1
--- NOTE | 2022-05-14 22:26 | EDPHYS ---
Physician Documentation [facility] Name: Basil Brantley Age: 42 yrs Sex: Male : 1980 Arrival Date: 05/14/2022 Time: 19:43 Bed 15 Private MD: ED Physician Rafael Simmons HPI: 05/14 22:26 This 42 yrs old Male presents to ER via EMS with complaints of Chest pain. pm1 22:26 The patient or guardian reports chest pain that is located primarily in the mid-sternal pm1 area. Onset: At least for 1 year and worse recently. The pain radiates to the left arm, left neck. Associated signs and symptoms: Pertinent positives: shortness of breath, Pertinent negatives: nausea, vomiting. The chest pain is described as a pressure. Duration: The patient or guardian reports a single episode, that is still ongoing. Modifying factors: The symptoms are alleviated by Ativan from EMS. Severity of pain: in the emergency department the pain is unchanged. The patient has not recently seen a physician. Historical: - Home Meds: 19:52 Adderall XR Oral [Active]; bh1 - PMHx: 19:52 ADD; bh1 - PSHx: 19:52 knee; Nose; Shoulder; bh1 - Immunization history:: Adult Immunizations unknown. - Social history:: Smoking status: Patient reports the use of cigarette tobacco products, smokes one pack cigarettes per day. ROS: 22:26 Constitutional: Negative for fever, chills, and weight loss. pm1 22:26 Abdomen/GI: Negative for abdominal pain, nausea, vomiting, diarrhea, and constipation, Back: Negative for injury and pain, MS/Extremity: Negative for injury and deformity, Skin: Negative for injury, rash, and discoloration, Neuro: Negative for headache, weakness, numbness, tingling, and seizure. 22:26 Cardiovascular: Positive for chest pain. 22:26 Respiratory: Positive for shortness of breath. 22:26 All other systems are negative. Exam: 22:26 Constitutional: This is a well developed, well nourished patient who is awake, alert, pm1 and in no acute distress. Head/Face: Normocephalic, atraumatic. 22:26 Back: No spinal tenderness. No costovertebral tenderness. Full range of motion. Skin: Warm, dry with normal turgor. Normal color with no rashes, no lesions, and no evidence of cellulitis. MS/ Extremity: Pulses equal, no cyanosis. Neurovascular intact. Full, normal range of motion. 22:26 Eyes: Exam is negative for acute changes, Periorbital structures: appear normal, Pupils: no acute changes, Extraocular movements: no acute changes. 22:26 Cardiovascular: Rate: normal, Rhythm: regular, Pulses: no pulse deficits are appreciated, Heart sounds: normal, normal S1and S2, Edema: is not appreciated. 22:26 Respiratory: Exam negative for acute changes, respiratory distress, shortness of breath, Breath sounds: are clear throughout. 22:26 Abdomen/GI: Inspection: abdomen appears normal, Palpation: abdomen is soft and non-tender, in all quadrants. 22:26 Neuro: Exam negative for acute changes, Orientation: is normal, Mentation: is normal, Motor: moves all fours. 22:26 Psych: Behavior/mood is anxious, Affect is animated, Oriented to person, place, time. Vital Signs: 19:43 BP 160 / 98; Pulse 99; Resp 20; Temp 98.3; Pulse Ox 99% on R/A; Weight 83.91 kg; Height bh1 5 ft. 9 in. (175.26 cm); 20:36 BP 132 / 81; Pulse 80; Resp 18; Pulse Ox 98% on R/A; bh1 21:42 BP 132 / 92; Pulse 75; Resp 20; Temp 98.6(O); Pulse Ox 96% on R/A; bh1 22:38 BP 129 / 86; Pulse 88; Resp 20; Temp 98.6(O); Pulse Ox 100% on R/A; bh1 19:43 Body Mass Index 27.32 (83.91 kg, 175.26 cm) bh1 MDM: 19:49 Patient medically screened. pm1 21:30 Counseling: I had a detailed discussion with the patient and/or guardian regarding: lab pm1 results, radiology results, Patient's blood pressure and chest pain improved with Ativan given in route by EMS. 22:25 Data reviewed: vital signs. Data interpreted: Pulse oximetry: on room air is 96 %. pm1 Interpretation: normal. 22:25 ED course: Patient reports that he has been having this chest pain for a long duration pm1 1 to 2 years, but has been getting worse. But improves with benzodiazepines that his girlfriend has been getting him. She has been giving him half pill of her Xanax and he reports improvement with it. Upon discharge patient is requesting medications for anxiety so that he feels he will not return to the ER quickly for repeat chest pain. 05/14 20:01 Order name: Basic Metabolic Panel; Complete Time: 21:07 pm05/14 20:01 Order name: CBC with Diff; Complete Time: 20:42 pm05/14 20:01 Order name: LFT's; Complete Time: 21:07 pm05/14 20:01 Order name: Magnesium; Complete Time: 21:07 pm05/14 20:01 Order name: NT PRO-BNP; Complete Time: 21:07 pm05/14 20:01 Order name: PT-INR; Complete Time: 20:42 pm05/14 20:01 Order name: Troponin HS; Complete Time: 21:07 pm05/14 20:01 Order name: XRAY Chest (1 view); Complete Time: 20:42 pm05/14 20:01 Order name: EKG; Complete Time: 20:02 pm05/14 20:01 Order name: Cardiac monitoring; Complete Time: 20:13 pm05/14 20:01 Order name: EKG - Nurse/Tech; Complete Time: 20:35 pm05/14 20:01 Order name: UDS; Complete Time: 20:50 pm05/14 20:35 Order name: Urine Dipstick-Ancillary; Complete Time: 20:35 EDMS 05/14 21:20 Order name: CT Aorta for Dissection; Complete Time: 22:10 pm05/14 20:01 Order name: IV Saline Lock; Complete Time: 20:13 pm05/14 20:01 Order name: Labs collected and sent; Complete Time: 20:35 pm05/14 20:01 Order name: O2 Per Protocol; Complete Time: 20:13 pm05/14 20:01 Order name: O2 Sat Monitoring; Complete Time: 20:13 pm05/14 20:01 Order name: Urine Dipstick-Ancillary (obtain specimen); Complete Time: 20:35 pm1 Administered Medications: No medications were administered Disposition Summary: 05/14/22 22:26 Discharge Ordered Location: Home pm1 Problem: new pm1 Symptoms: have improved pm1 Condition: Stable pm1 Diagnosis - Chest pain, unspecified pm1 Followup: pm1 - With: Emergency Department - When: As needed - Reason: Worsening of condition Followup: pm1 - With: Private Physician - When: 2 - 3 days - Reason: Recheck today's complaints, Continuance of care, Re-evaluation by your physician Discharge Instructions: - Discharge Summary Sheet pm1 - Nonspecific Chest Pain, Adult pm1 Forms: - Medication Reconciliation Form pm1 - Thank You Letter pm1 - Antibiotic Education pm1 - Prescription Opioid Use pm1 Prescriptions: - Hydroxyzine HCl 25 mg Oral Tablet - take 1 tablet by ORAL route every 6 hours As needed; 30 tablet; Refills: 0, pm1 Product Selection Permitted Signatures: Dispatcher [employer] Mendoza Patricia, AYE SIGN PAINTER pm1 Bryanna Capellan, RN RN [facility]
[2022-05-14 23:15] VITALS: TEMP 98.6
[2022-05-14 23:17] VITALS: BP 129/86; O2SAT 100
--- NOTE | 2022-05-16 17:32 | EKG ---
Test Date: 2022-05-14 Test Time: 20:24:09 Data Steward: MEASUREMENT RESULTS: Intervals: Rate: 74 OK: 146 QRSD: 96 QT: 360 QTc: 399 [place]: P: 40 OK: 146 QRS: 96 T: 17 INTERPRETIVE STATEMENTS: Normal sinus rhythm Rightward axis Borderline ECG Compared to ECG 01/01/2021 15:49:54 Right-axis deviation now present Sinus bradycardia no longer present Electronically Signed On 05-16-22 17:29:19 CDT by Galo Zelaya
== END 2022-05-14 22:39 | disposition home or self-care (01) ==
LOC: ER 19:40
DX: R07.9 Chest pain, unspecified (principal); R06.02 Shortness of breath; F17.210 Nicotine dependence, cigarettes, uncomplicated
CPT/HCPCS: 93005; 85025; 80048; 36415; 83735; 85610; 80076; 81003; 84484; 83880; 80307; 71275; 74175; 71045; 99285; Q9967

== ENCOUNTER 2022-10-12 16:33 | Emergency (ER) | payer BC, OTHER ==
--- OUTSIDE RECORDS SUMMARY | 2022-10-12 16:46 | XMS REPORT | Continuity of Care Document ---
:[address] [facility] t Address [address] [place] [address] Care Team Providers Name Role Phone Pcp, Patient Does Not Have A Primary Care Physician +[id number] Doctor Unassigned, [place] Attending Clinician Unavailable Therapy, [facility] Covid Infusion Attending Clinician Unavailable Gavino Anderson MD Attending Clinician GAVINO ANDERSON Attending Clinician Unavailable Problems This patient has no known problems. Allergies, Adverse Reactions, Alerts Allergy Allergy Status Severity Reaction(s) Onset Inactive Treating Comm ents Source Name Type Date Date Clinician NO KNOWN Drug Active Univers ALLERGIE Class ity of [facility] Social History Social Habit Start Date Stop Date Quantity Comments Source Exposure to Yes [facility] SARS-CoV-2 (event) Medica l Branch Sex Assigned At [birth year] [facility] 00:00:00 00:00:00 [facility] Smoking Status Start Date Stop Date Source Unknown if ever smoked [facility] Medications This patient has no known medications. Vital Signs Vital Name Observation Time Observation Value Comments Source Systolic blood 2021-07-19 17:10:00 142 mm[Hg] Univer sity of [facility] Diastolic blood 2021-07-19 17:10:00 87 mm[Hg] Unive rsity of [facility] Heart rate 2021-07-19 17:10:00 70 /min [facility] Body temperature 2021-07-19 17:10:00 36.89 [facility] Res[facility] rate 2021-07-19 17:10:00 18 /min [facility] Oxygen saturation in 2021-07-19 17:10:00 100 /min University of Arterial blood by [facility] Pulse oximetry Branch Body height 2021-07-19 16:28:00 167.6 cm [facility] Body weight 2021-07-19 16:28:00 80.287 kg [facility] BMI 2021-07-19 16:28:00 28.57 kg/m2 [facility] Systolic blood 2021-07-19 16:28:00 134 mm[Hg] Univer sity of pressure [facility] Diastolic blood 2021-07-19 16:28:00 77 mm[Hg] Unive rsity of pressure [facility] Heart rate 2021-07-19 16:28:00 76 /min [facility] Body temperature 2021-07-19 16:28:[address] [facility] Respiratory rate 2021-07-19 16:28:00 19 /min [facility] Oxygen saturation in 2021-07-19 16:28:00 98 /min University of Arterial blood by [facility] Pulse oximetry [place] Procedures Procedure Date / Time Performed Performing Clinician [facility] e IMMTRAC2 CONSENT 2021-07-22 05:01:00 [facility] En[facility] Start End Encounter Admission Attending Care Care Encounter Source Date/Time Date/Time Type Type Clinicians Facility Department ID 2021-07-22 2021-07-22 Orders Doctor KUN [id number] [facility] 00:00:00 00:00:00 Only Unassigned, NICOLE [id number] [facility] [id number] Daren as [id number] [place] [address] Branch 2021-07-19 2021-07-19 Nurse Therapy, Adc Covid Infusion [facility] [id number] [facility] 10:06:24 11:06:24 Visit Gavino Anderson [id number] ity of [place] [id number] Mela dayo Surgical [id number] [facility] 053 Branch 2021-07-19 2021-07-19 Outpatient Marilin ANDERSON [facility] [id number] [facility] 11:00:00 11:00:00 GAVINO weaver of [facility] Results This patient has no known results.
[2022-10-12] MEDS ORDERED: MECLIZINE HCL 12.5 MG TAB ONE (18:26)
[2022-10-12] MEDS ORDERED: ONDANSETRON 4 MG/2 ML VIAL ONE (18:44)
[2022-10-12] MEDS ORDERED: NA CHLORIDE 0.9% 1,000 ML ONE ×2 (18:44→19:22)
[2022-10-12 18:50] LABS: Hematocrit 48.7 % (39.6-49.0); Lymphocytes % 27.1 % (15.3-44.8); MCV 81.9 fL (80-100); MPV 8.9 fL (7.6-11.3); RBC Red Blood Cell Count 5.95 M/uL (4.33-5.43)
[2022-10-12 18:56] LABS: Magnesium 2.3 mg/dL (1.8-2.4); Potassium 3.8 mmol/L (3.5-5.1); Troponin High Sensitivity 6.6 pg/mL (<58.9)
[2022-10-12 19:36] LABS: SARS-COV-2 RT PCR NEGATIVE (NEGATIVE)
--- NOTE | 2022-10-12 19:37 | RAD REPORT ---
EXAM DESCRIPTION: RAD - Chest Single View - 10/12/2022 7:29 pm CLINICAL HISTORY: near syncope Chest pain. COMPARISON: Chest Single View dated 05/14/2022; Chest Pa And Lat (2 Views) dated 02/15/2022; Chest Sin gle View dated 01/01/2021; CHEST SINGLE VIEW dated 10/18/2011 FINDINGS: Portable technique limits examination quality. The lungs are grossly clear. The heart is normal in size. No displaced fractures. IMPRESSION: No acute intrathoracic process suspected.
--- NOTE | 2022-10-12 19:40 | RAD REPORT ---
EXAM DESCRIPTION: CT - Head Brain Wo Cont - 10/12/2022 7:27 pm CLINICAL HISTORY: near syncope, headache Headache, drowsiness, syncope COMPARISON: Head Brain Wo Cont dated 01/01/2021; HEAD BRAIN W O CONTRAST dated 01/27/2010 TECHNIQUE: All CT scans are performed using dose optimization technique as appropriate and may inclu de automated exposure control or mA/KV adjustment according to patient size. FINDINGS: No intracranial hemorrhage, hydrocephalus or extra-axial fluid collection.No areas of brai n edema or evidence of midline shift. The paranasal sinuses and mastoids are clear. The calvarium is intact. IMPRESSION: No acute intracranial abnormality.
--- NOTE | 2022-10-12 20:06 | ER ---
Nurse's Notes [facility] Name: Basil Brantley Age: 42 yrs Sex: Male : 1980 Arrival Date: 10/12/2022 Time: 16:34 Bed Treatment Private MD: Diagnosis: Dizziness and giddiness;Syncope Near Presentation: 10/12 16:53 Chief complaint: EMS states: called 911 because he blew his nose and his ear popped iw causing pain, dizziness, and decreased hearing from ear. Is currently being treated for URI on antibiotics. 20g left AC was given 4mg zofran and the zofran caused him to be anxious so I gave him 2mg Ativan. Coronavirus screen: Vaccine status: Patient reports being unvaccinated. Client denies travel out of the [place] in the last 14 days. Ebola Screen: Patient negative for fever greater than or equal to 101.5 degrees Fahrenheit, and additional compatible Ebola Virus Disease symptoms Patient denies exposure to infectious person. Patient denies travel to an Ebola-affected area in the 21 days before illness onset. Initial Sepsis Screen: Does the patient meet any 2 criteria? No. Patient's initial sepsis screen is negative. Does the patient have a suspected source of infection? No. Patient's initial sepsis screen is negative. Risk Assessment: Do you want to hurt yourself or someone else? Patient reports no desire to harm self or others. 16:53 Method Of Arrival: Ambulatory iw 16:53 Acuity: ELENA 3 iw 20:58 Onset of symptoms was October 12, 2022 at 16:00. kb3 Triage Assessment: 16:55 General: Appears in no apparent distress. uncomfortable, well groomed, well developed, iw Behavior is calm, cooperative, appropriate for age. Pain: Complains of pain in ear. Historical: - PMHx: 16:55 ADD; iw - PSHx: 16:55 knee; Nose; Shoulder; iw - Immunization history:: Adult Immunizations up to date. - Social history:: Smoking status: Patient denies any tobacco usage or history of. Screenin:52 Abuse screen: Denies threats or abuse. Nutritional screening: No deficits noted. kr3 Tuberculosis screening: No symptoms or risk factors identified. Fall Risk IV access (20 points). Total Yoon Fall Scale indicates No Risk (0-24 pts). Assessment: 18:45 General: Appears in no apparent distress. uncomfortable, Behavior is calm, cooperative, kb3 Received care of pt from Diagnostic Chair area. Pt is AAO x4, states he blew his nose and felt a pop in his ears. Pt reports cough, congestion, body aches, headache x 1 week. 18:45 EENT: Reports nasal congestion nasal discharge that is yellow pain in left ear and kb3 right ear. Vital Signs: 16:53 BP 149 / 65; Pulse 95; Resp 18; Temp 98.8; Pulse Ox 98% ; Weight 97.52 kg; Height 5 ft. iw 8 in. (172.72 cm); Pain 3/10; 19:37 BP 132 / 74; Pulse 79; Resp 20; Pulse Ox 99% ; kb3 20:52 BP 130 / 72; Pulse 77; Resp 18; Pulse Ox 99% on R/A; kr3 16:53 Body Mass Index 32.69 (97.52 kg, 172.72 cm) iw ED Course: 16:34 Patient arrived in ED. rg4 16:48 Rafael Landa PA is PHCP. cp 16:48 Kin Richards MD is Attending Physician. cp 16:55 Triage completed. iw 16:55 Arm band placed on right wrist. iw 16:55 Bed in low position. Call light in reach. kr3 18:34 Cheyenne Singh, RN is Primary Nurse. jh5 18:35 COVID-19/FLU A+B Sent. jh5 19:28 CT Head Brain wo Cont In Process Unspecified. EDMS 19:31 XRAY Chest (1 view) In Process Unspecified. EDMS 20:06 Talia Stiles MD is Referral Physician. cp 20:54 No provider procedures requiring assistance completed. IV discontinued, intact, kr3 bleeding controlled, No redness/swelling at site. Pressure dressing applied. Administered Medications: 18:27 Drug: Meclizine 25 mg Route: PO; jh5 19:37 Follow up: Response: No adverse reaction kb3 18:58 Drug: Zofran (Ondansetron) 4 mg Route: IVP; Site: left antecubital; 5 19:37 Follow up: Response: No adverse reaction 3 18:58 Drug: NS 0.9% 1000 ml Route: IV; Rate: 1 bolus; Site: left antecubital; jh5 20:40 Follow up: Response: No adverse reaction; IV Status: Completed infusion; IV Intake: jh5 1000ml 19:36 Drug: NS 0.9% 1000 ml Route: IV; Rate: 1 bolus; Site: left antecubital; kb3 20:40 Follow up: Response: No adverse reaction; IV Status: Completed infusion; IV Intake: jh5 1000ml 20:39 Drug: Decadron - Dexamethasone 10 mg Route: IVP; Site: left antecubital; jh5 20:59 Follow up: Response: No adverse reaction; Medication administered at discharge. kb3 20:39 Drug: Ketorolac 15 mg Route: IVP; Site: left antecubital; jh5 20:58 Follow up: Response: No adverse reaction; Medication administered at discharge. kb3 Medication: 20:55 VIS not applicable for this client. kr3 Intake: 20:40 IV: 1000ml; Total: 1000ml. jh5 20:40 IV: 1000ml; Total: 2000ml. jh5 Outcome: 20:06 Discharge ordered by MD. cp 20:54 Discharged to home ambulatory. kr3 20:54 Condition: stable 20:54 Discharge instructions given to patient, Instructed on discharge instructions, follow up and referral plans. medication usage, Demonstrated understanding of instructions, follow-up care, medications, Prescriptions given X 3. 21:00 Patient left the ED. kb3 Signatures: Dispatcher [employer] EDNena Ortega RN RN iw Page, Corey, PA PA cp Garcia, Rubi rg4 Cheyenne Singh RN RN jh5 Fabienne Corbett RN RN kr3 Majo Cotto RN RN kb3 Corrections: (The following items were deleted from the chart) 20:57 20:56 EENT: Reports nasal congestion nasal discharge that is yellow pain in left ear kb3 and right ear kb3
--- NOTE | 2022-10-12 20:07 | EDPHYS ---
Physician Documentation [facility] Name: Basil Brantley Age: 42 yrs Sex: Male : 1980 Arrival Date: 10/12/2022 Time: 16:34 Bed Treatment Private MD: ED Physician Kin Richards HPI: 10/12 18:10 This 42 yrs old Male presents to ER via Ambulatory with complaints of Dizziness. cp 18:10 The patient presents with dizziness, lightheadedness. cp 18:10 Onset: The symptoms/episode began/occurred suddenly, today, started after blowing nose. cp 18:10 Associated signs and symptoms: Pertinent positives: headache, nausea, near-syncope, cp Pertinent negatives: abdominal pain, chest pain, focal weakness, palpitations, shortness of breath, syncope, vomiting. Patient's baseline: Neuro: alert and fully oriented, Motor: no deficits, Ambulation: walks without assistance, Speech: normal. Patient reports sudden onset of pressure, pain, dizziness to right ear after blowing nose. Reports almost losing consciousness. Currently taking Augmentin for ear infection over past 5 days. Historical: - PMHx: 16:55 ADD; iw - PSHx: 16:55 knee; Nose; Shoulder; iw - Immunization history:: Adult Immunizations up to date. - Social history:: Smoking status: Patient denies any tobacco usage or history of. ROS: 18:15 Constitutional: Negative for chills, fever, poor PO intake. cp 18:15 Eyes: Negative for injury, pain, redness, and discharge. cp 18:15 ENT: Positive for ear pain, Negative for drainage from ear(s), rhinorrhea, sore throat, difficulty swallowing, difficulty handling secretions. 18:15 Neck: Negative for pain with movement, pain at rest, stiffness. 18:15 Cardiovascular: Negative for chest pain, palpitations. 18:15 Respiratory: Negative for cough, shortness of breath, wheezing. 18:15 Abdomen/GI: Positive for nausea, Negative for abdominal pain, vomiting, diarrhea, constipation. 18:15 Neuro: Positive for dizziness, headache, Negative for altered mental status, weakness. Exam: 18:20 Constitutional: The patient appears in no acute distress, alert, awake, cp non-diaphoretic, non-toxic, well developed, well nourished, uncomfortable. 18:20 Head/Face: Normocephalic, atraumatic. cp 18:20 Eyes: Periorbital structures: appear normal, Pupils: equal, round, and reactive to cp light and accomodation, Extraocular movements: intact throughout, Conjunctiva: normal, no exudate, no injection, Sclera: no appreciated abnormality, Lids and lashes: appear normal, bilaterally. 18:20 ENT: External ear(s): are unremarkable, Ear canal(s): are normal, clear, TM's: dullness, bilaterally, Nose: is normal, Mouth: Lips: moist, Oral mucosa: pink and intact, moist, Posterior pharynx: Airway: no evidence of obstruction, patent, Tonsils: are normal in appearance, swelling, is not appreciated, erythema, is not appreciated, exudate, is not appreciated. 18:20 Neck: ROM/movement: is normal, is supple, without pain, no range of motions limitations, no meningismus, Lymph nodes: no appreciated lymphadenopathy. 18:20 Chest/axilla: Inspection: normal. 18:20 Cardiovascular: Rate: normal, Rhythm: regular, Edema: is not appreciated, JVD: is not appreciated. 18:20 Respiratory: the patient does not display signs of respiratory distress, Respirations: normal, no use of accessory muscles, no retractions, labored breathing, is not present, Breath sounds: are clear throughout, no decreased breath sounds, no stridor, no wheezing. 18:20 Abdomen/GI: Inspection: abdomen appears normal, Palpation: abdomen is soft and non-tender, in all quadrants. 18:20 Skin: cellulitis, is not appreciated, no rash present. 18:20 Neuro: Orientation: to person, place \T\ time. Mentation: is normal, Cerebellar function: Romberg testing is negative, Motor: moves all fours, strength is normal, Sensation: is normal. 19:10 ECG was reviewed by the Attending Physician. cp Vital Signs: 16:53 BP 149 / 65; Pulse 95; Resp 18; Temp 98.8; Pulse Ox 98% ; Weight 97.52 kg; Height 5 ft. iw 8 in. (172.72 cm); Pain 3/10; 19:37 BP 132 / 74; Pulse 79; Resp 20; Pulse Ox 99% ; kb3 20:52 BP 130 / 72; Pulse 77; Resp 18; Pulse Ox 99% on R/A; kr3 16:53 Body Mass Index 32.69 (97.52 kg, 172.72 cm) iw MDM: 16:56 Patient medically screened. cp 19:00 Differential diagnosis: cardiac arrhythmia, CVA, hypovolemia, idiopathic dizziness, cp near-syncope, syncope, vertigo, otitis media, sinusitis, ruptured ear drum. 20:05 Data reviewed: vital signs, nurses notes, lab test result(s), EKG, radiologic studies, cp CT scan, plain films. 20:05 Test interpretation: by ED physician or midlevel provider: ECG, plain radiologic cp studies. Counseling: I had a detailed discussion with the patient and/or guardian regarding: the historical points, exam findings, and any diagnostic results supporting the discharge/admit diagnosis, lab results, radiology results, the need for outpatient follow up, an ENT specialist, to return to the emergency department if symptoms worsen or persist or if there are any questions or concerns that arise at home. Response to treatment: the patient's symptoms have markedly improved after treatment, and as a result, I will discharge patient. 10/12 18:08 Order name: Basic Metabolic Panel; Complete Time: 19:01 10/12 19:02 Interpretation: Normal except: GLUC 108; GFR 85. 10/12 18:08 Order name: CBC with Diff; Complete Time: 19:01 10/12 19:02 Interpretation: Normal except: RBC 5.95. 10/12 18:08 Order name: Magnesium; Complete Time: 19:01 10/12 18:08 Order name: Troponin HS; Complete Time: 19:01 10/12 19:02 Interpretation: Troponin HS 6.6; Reviewed. 10/12 18:08 Order name: XRAY Chest (1 view); Complete Time: 19:42 10/12 19:42 Interpretation: Report review. 10/12 18:08 Order name: COVID-19/FLU A+B; Complete Time: 19:42 10/12 18:08 Order name: EKG; Complete Time: 18:08 10/12 18:08 Order name: CT Head Brain wo Cont; Complete Time: 19:42 10/12 19:43 Interpretation: Report reviewed. 10/12 18:08 Order name: EKG - Nurse/Tech; Complete Time: 19:19 cp 10/12 18:08 Order name: IV Saline Lock; Complete Time: 18:22 cp 10/12 18:08 Order name: Labs collected and sent; Complete Time: 18:35 cp 10/12 18:08 Order name: O2 Per Protocol; Complete Time: 18:23 cp 10/12 18:08 Order name: O2 Sat Monitoring; Complete Time: 18:23 cp EC:10 Rate is 76 beats/min. Rhythm is regular. OR interval is normal. QRS interval is normal. cp QT interval is normal. T waves are Inverted in lead aVR. Interpreted by me. Reviewed by me. Administered Medications: 18:27 Drug: Meclizine 25 mg Route: PO; 5 19:37 Follow up: Response: No adverse reaction 3 18:58 Drug: Zofran (Ondansetron) 4 mg Route: IVP; Site: left antecubital; 5 19:37 Follow up: Response: No adverse reaction 3 18:58 Drug: NS 0.9% 1000 ml Route: IV; Rate: 1 bolus; Site: left antecubital; jh5 20:40 Follow up: Response: No adverse reaction; IV Status: Completed infusion; IV Intake: jh5 1000ml 19:36 Drug: NS 0.9% 1000 ml Route: IV; Rate: 1 bolus; Site: left antecubital; kb3 20:40 Follow up: Response: No adverse reaction; IV Status: Completed infusion; IV Intake: jh5 1000ml 20:39 Drug: Decadron - Dexamethasone 10 mg Route: IVP; Site: left antecubital; 5 20:59 Follow up: Response: No adverse reaction; Medication administered at discharge. kb3 20:39 Drug: Ketorolac 15 mg Route: IVP; Site: left antecubital; jh5 20:58 Follow up: Response: No adverse reaction; Medication administered at discharge. kb3 Disposition: 10/13 07:31 Co-signature as Attending Physician, Kin Richards MD I agree with the assessment and rt plan of care. Disposition Summary: 10/12/22 20:06 Discharge Ordered Location: Home cp Problem: new cp Symptoms: have improved cp Condition: Stable cp Diagnosis - Dizziness and giddiness cp - Syncope Near cp Followup: cp - With: Talia Stiles MD - When: 2 - 3 days - Reason: Recheck today's complaints Discharge Instructions: - Discharge Summary Sheet cp - Dizziness cp - Near-Syncope cp Forms: - Medication Reconciliation Form cp - Thank You Letter cp - Antibiotic Education cp - Prescription Opioid Use cp Prescriptions: - Flonase Allergy Relief 50 mcg/actuation Nasal spray,suspension - spray 1 spray by INTRANASAL route once daily for 8-10 days; 1 Device; Refills: cp 0, Product Selection Permitted - Meclizine 25 mg Oral Tablet - take 1 tablet by ORAL route every 8 hours As needed; 30 tablet; Refills: 0, cp Product Selection Permitted - Zofran 4 mg Oral Tablet - take 1 tablet by ORAL route every 12 hours As needed; 20 tablet; Refills: 0, cp Product Selection Permitted - Medrol (Ronald) 4 mg Oral Tablets, Dose Pack - take 1 tablet by ORAL route as directed - follow package instructions; 1 cp packet; Refills: 0, Product Selection Permitted Signatures: Dispatcher [employer] Nena Torres, RN RN iw Rafael Landa PA PA Cheyenne Gant, RN RN jh5 Majo Cotto RN RN kb3 Kin Richards MD MD rt
[2022-10-12] MEDS ORDERED: KETOROLAC 30 MG/ML INJ ONE (20:34)
[2022-10-12] MEDS ORDERED: dexAMETHasone 10 MG/ML VIAL ONE (20:34)
[2022-10-12 21:38] VITALS: TEMP 98.8
[2022-10-12 21:39] VITALS: O2SAT 99
[2022-10-12 21:40] VITALS: BP 130/72
--- NOTE | 2022-10-13 13:48 | EKG ---
Test Date: 2022-10-12 Test Time: 19:07:37 Textile Screen Maker: MIMI MEASUREMENT RESULTS: Intervals: Rate: 76 NH: 146 QRSD: 86 QT: 342 QTc: 384 [place]: P: 50 NH: 146 QRS: 80 T: 30 INTERPRETIVE STATEMENTS: Normal sinus rhythm Normal ECG Compared to ECG 05/14/2022 20:24:09 Right-axis deviation no longer present Electronically Signed On 10-13-22 13:46:54 BROOMMAKING SUPERVISOR by Galo Zelaya
== END 2022-10-12 21:00 | disposition home or self-care (01) ==
LOC: ER 16:33
DX: R42 Dizziness and giddiness (principal); R55 Syncope and collapse; R51.9 Headache, unspecified; R11.0 Nausea; Z20.822 Contact with and (suspected) exposure to COVID-19
CPT/HCPCS: 96361; 93005; 85025; 80048; 36415; 83735; 84484; 0240U; 70450; 71045; 96375; 96374; 99284; J8597; J1100; J7030 ×2; J2405

== ENCOUNTER 2022-10-13 15:53 | Emergency (ER) | payer BC, OTHER ==
--- OUTSIDE RECORDS SUMMARY | 2022-10-13 15:55 | XMS REPORT | Continuity of Care Document ---
:1980 Author Organization [facility] t Address [address] [place] [address] Care Team Providers Name Role Phone Pcp, Patient Does Not Have A Primary Care Physician +[phone] 00-0000 Doctor Unassigned, [place] Attending Clinician Unavailable Therapy, [facility] Covid Infusion Attending Clinician Unavailable Gavino Anderson MD Attending Clinician GAVINO ANDERSON Attending Clinician Unavailable Problems This patient has no known problems. Allergies, Adverse Reactions, Alerts Allergy Allergy Status Severity Reaction(s) Onset Inactive Treating Comm ents Source Name Type Date Date Clinician NO KNOWN Drug Active Univers ALLERGIE Class ity of [facility] Social History Social Habit Start Date Stop Date Quantity Comments Source Exposure to Yes [facility] SARS-CoV-2 (event) Medica l Branch Sex Assigned At [birth year] [facility] 00:00:00 00:00:00 [facility] Smoking Status Start Date Stop Date Source Unknown if ever smoked [facility] Medications This patient has no known medications. Vital Signs Vital Name Observation Time Observation Value Comments Source Systolic blood 2021-07-19 17:10:00 142 mm[Hg] Univer sity of [facility] Diastolic blood 2021-07-19 17:10:00 87 mm[Hg] Unive rsity of [facility] Heart rate 2021-07-19 17:10:00 70 /min [facility] Body temperature 2021-07-19 17:10:00 36.89 [facility] Respiratory rate 2021-07-19 17:10:00 18 /min [facility] Oxygen saturation in 2021-07-19 17:10:00 100 /min University of Arterial blood by [facility] Pulse oximetry Branch Body height 2021-07-19 16:28:00 167.6 cm [facility] Body weight 2021-07-19 16:28:00 80.287 kg [facility] BMI 2021-07-19 16:28:00 28.57 kg/m2 [facility] Systolic blood 2021-07-19 16:28:00 134 mm[Hg] Univer sity of pressure [facility] Diastolic blood 2021-07-19 16:28:00 77 mm[Hg] Unive rsity of pressure [facility] Heart rate 2021-07-19 16:28:00 76 /min [facility] Body temperature 2021-07-19 16:28:00 36.89 Adenike [facility] Respiratory rate 2021-07-19 16:28:00 19 /min [facility] Oxygen saturation in 2021-07-19 16:28:00 98 /min [facility] Arterial blood by [facility] Pulse oximetry [place] Procedures Procedure Date / Time Performed Performing Clinician [facility] e IMMTRAC2 CONSENT 2021-07-22 05:01:00 [facility] En[facility] Start End Encounter Admission Attending Care Care Encounter Source Date/Time Date/Time Type Type Clinicians Facility Department ID 2021-07-22 2021-07-22 Orders Doctor KUN [id number] [facility] 00:00:00 00:00:00 Only Unassigned, NICOLE [id number] [facility] [id number] Daren as [phone] [place] [address] Branch 2021-07-19 2021-07-19 Nurse Therapy, Adc Covid Infusion [facility] [id number] [facility] 10:06:24 11:06:24 Visit Gavino Anderson [id number] ity of [place] [id number] Mela dayo Surgical [id number] [facility] 053 Branch 2021-07-19 2021-07-19 Outpatient Marilin ANDERSON [facility] [id number] [facility] 11:00:00 11:00:[address] [facility] Results This patient has no known results.
[2022-10-13 16:30] LABS: Absolute Lymphocytes (CBC) 1.6 K/uL (0.7-4.9); Hematocrit 45.1 % (39.6-49.0); Lymphocytes % 12.1 % (15.3-44.8); MCV 81.9 fL (80-100); MPV 9.4 fL (7.6-11.3); RBC Red Blood Cell Count 5.51 M/uL (4.33-5.43)
[2022-10-13 16:57] LABS: Potassium 3.6 mmol/L (3.5-5.1); Troponin High Sensitivity 19.2 pg/mL (<58.9)
[2022-10-13] MEDS ORDERED: NA CHLORIDE 0.9% 1,000 ML ONE (17:49)
[2022-10-13] MEDS ORDERED: LORAZEPAM 1 MG TABLET ONE (17:49)
--- NOTE | 2022-10-13 17:54 | RAD REPORT ---
EXAM DESCRIPTION: RAD - Chest Single View - 10/13/2022 5:23 pm CLINICAL HISTORY: PALPITATIONS COMPARISON: Chest Single View dated 10/12/2022; Chest Single View dated 05/14/2022; Chest Pa And Lat (2 Views) dated 02/15/2022; Chest Single View dated 01/01/2021 FINDINGS: Lines: None. Lungs: No evidence of edema or pneumonia. Pleural: No significant pleural effusions or pneumothorax. Cardiac: The heart size is within normal limits. Mediastinum: Within normal limits. Bones: No acute fractures. Other: None IMPRESSION: No acute cardiopulmonary disease.
--- NOTE | 2022-10-13 18:19 | EDPHYS ---
Physician Documentation [facility] Name: Basil Brantley Age: 42 yrs Sex: Male : 1980 Arrival Date: 10/13/2022 Time: 15:57 Bed 19 Private MD: ED Physician Kin Richards HPI: 10/13 16:18 This 42 yrs old Male presents to ER via EMS with complaints of Palpitations. kb 16:18 The patient presents with a history of heart racing, heart skipping beats. Context: The kb symptoms occur at rest. Onset: The symptoms/episode began/occurred today. Duration: The patient or guardian reports a single episode. Modifying factors: The symptoms are aggravated by nothing. The symptoms are alleviated by nothing. Associated signs and symptoms: Pertinent positives: anxiety. Severity of symptoms: At their worst the symptoms were moderate in the emergency department the symptoms are unchanged. The patient has experienced similar episodes in the past, a few times. The patient has not recently seen a physician. Pt reports his heart has been racing and feels like it skips beats since 0900. Has had this several times in the past. Denies chest pain, shortness of breath. States he feels anxious when this happens, but he doesn't have a reason for the anxiety today. Historical: - PMHx: 15:59 ADD; bp - PSHx: 15:59 knee; Nose; Shoulder; bp - Immunization history:: Adult Immunizations up to date. - Social history:: Smoking status: unknown. ROS: 16:13 Constitutional: Negative for fever, chills, and weight loss. kb 16:13 Cardiovascular: Positive for palpitations, Negative for chest pain, edema, orthopnea, paroxysmal nocturnal dyspnea. 16:13 Psych: Positive for anxiety. 16:13 All other systems are negative. Exam: 16:12 Constitutional: This is a well developed, well nourished patient who is awake, alert, kb and in no acute distress. Head/Face: Normocephalic, atraumatic. ENT: Moist Mucous membranes Cardiovascular: Regular rate and rhythm with a normal S1 and S2. No gallops, murmurs, or rubs. No pulse deficits. Respiratory: Respirations even and unlabored. No increased work of breathing. Talking in full sentences Abdomen/GI: Soft, non-tender. No distention Skin: Warm, dry with normal turgor. Normal color. MS/ Extremity: Pulses equal, no cyanosis. Neurovascular intact. Full, normal range of motion. Neuro: Awake and alert, GCS 15, oriented to person, place, time, and situation. Moves all extremities. Normal gait. Psych: Awake, alert, with orientation to person, place and time. Behavior, mood, and affect are within normal limits. 16:12 ECG was reviewed by the Attending Physician. Vital Signs: 15:57 BP 150 / 81; Pulse 109; Resp 18; Temp 98; Pulse Ox 97% ; bp 17:01 BP 134 / 85; Pulse 94; Resp 19; Pulse Ox 98% ; bp 18:03 BP 142 / 100; Pulse 82; Resp 19; Pulse Ox 99% ; bp 18:57 BP 137 / 75; Pulse 78; Resp 19; Pulse Ox 99% ; bp MDM: 15:59 Patient medically screened. kb 16:13 Data reviewed: vital signs, nurses notes. Data interpreted: Pulse oximetry: on room air kb is 97 %. Interpretation: normal. 17:59 Counseling: I had a detailed discussion with the patient and/or guardian regarding: the kb historical points, exam findings, and any diagnostic results supporting the discharge/admit diagnosis, lab results, radiology results, the need for outpatient follow up, a family practitioner, to return to the emergency department if symptoms worsen or persist or if there are any questions or concerns that arise at home. 18:36 ED course: Pt states he has talked to Dr Shannon about this anxiety and was prescribed kb hydroxyzine. States that hasn't been working, he took 3 today back to back but it never helped the anxiety. Discussed follow up with Dr Shannon for another intervention for anxiety management. Discussed nonpharmalogical management techniques. . 10/13 16:08 Order name: Basic Metabolic Panel; Complete Time: 16:58 kb 10/13 16:08 Order name: CBC with Diff; Complete Time: 16:44 kb 10/13 16:08 Order name: D-Dimer; Complete Time: 16:44 kb 10/13 16:08 Order name: Magnesium; Complete Time: 16:58 kb 10/13 16:08 Order name: NT PRO-BNP; Complete Time: 16:58 kb 10/13 16:08 Order name: Troponin HS; Complete Time: 16:58 kb 10/13 16:08 Order name: XRAY Chest (1 view); Complete Time: 17:59 kb 10/13 16:08 Order name: EKG; Complete Time: 16:08 kb 10/13 16:08 Order name: Cardiac monitoring; Complete Time: 16:11 kb 10/13 16:08 Order name: EKG - Nurse/Tech; Complete Time: 16:11 kb 10/13 16:08 Order name: IV Saline Lock; Complete Time: 16:12 kb 10/13 16:08 Order name: Labs collected and sent; Complete Time: 16:12 kb 10/13 16:08 Order name: O2 Per Protocol; Complete Time: 16:12 kb 10/13 16:08 Order name: O2 Sat Monitoring; Complete Time: 16:12 kb EC:12 Rate is 105 beats/min. Rhythm is regular. QRS [place] is Normal. MI interval is normal at kb 166 msec. QRS interval is normal at 82 msec. QT interval is normal at 422 msec. Administered Medications: 17:45 Drug: NS 0.9% 1000 ml Route: IV; Rate: 1000 ml; Site: left antecubital; bp 18:58 Follow up: IV Status: Completed infusion; IV Intake: 1000ml bp 17:45 Drug: Ativan (LORazepam) 1 mg Route: PO; bp 18:59 Follow up: Response: No adverse reaction bp Disposition: 16:18 Co-signature as Attending Physician, Kin Richards MD I agree with the assessment and rt plan of care. Disposition Summary: 10/13/22 18:18 Discharge Ordered Location: Home kb Condition: Stable kb Diagnosis - Palpitations kb - Anxiety disorder, unspecified kb Followup: kb - With: Emergency Department - When: As needed - Reason: Worsening of condition Followup: kb - With: Private Physician - When: 2 - 3 days - Reason: Recheck today's complaints, Continuance of care, Re-evaluation by your physician Discharge Instructions: - Discharge Summary Sheet kb - Panic Attack, [id number] kb - Palpitations, [id number] kb Forms: - Medication Reconciliation Form kb - Thank You Letter kb - Antibiotic Education kb - Prescription Opioid Use kb - Work release form bd Signatures: Dispatcher [employer] EDNancy Dickson, LUCIA-Power MYERS-Karl Hassan RN RN bp [place], Kin, MD MD rt
--- NOTE | 2022-10-13 18:19 | ER ---
Nurse's Notes [facility] Name: Basil Brantley Age: 42 yrs Sex: Male : 1980 Arrival Date: 10/13/2022 Time: 15:57 Bed 19 Private MD: Diagnosis: Palpitations;Anxiety disorder, unspecified Presentation: 10/13 15:57 Chief complaint: EMS states: RAPID HEART RATE, SEEN Y/D FOR SAME. Coronavirus screen: bp At this time, the client does not indicate any symptoms associated with coronavirus-19. Ebola Screen: No symptoms or risks identified at this time. Initial Sepsis Screen: Does the patient meet any 2 criteria? Does the patient have a suspected source of infection? No. Patient's initial sepsis screen is negative. Risk Assessment: Do you want to hurt yourself or someone else? Patient reports no desire to harm self or others. Onset of symptoms is unknown. Care prior to arrival: IV initiated. 18 GA, in the left antecubital area. 15:57 Method Of Arrival: EMS: [facility] bp 15:57 Acuity: ELENA 2 bp Triage Assessment: 16:00 General: Appears distressed, Behavior is cooperative, appropriate for age, anxious. bp Pain: Denies pain. EENT: No deficits noted. Neuro: No deficits noted. Cardiovascular: Rhythm is sinus tachycardia. Respiratory: No deficits noted. GI: No signs and/or symptoms were reported involving the gastrointestinal system. : No signs and/or symptoms were reported regarding the genitourinary system. Derm: No deficits noted. Musculoskeletal: No deficits noted. Historical: - PMHx: 15:59 ADD; bp - PSHx: 15:59 knee; Nose; Shoulder; bp - Immunization history:: Adult Immunizations up to date. - Social history:: Smoking status: unknown. Screenin:00 Abuse screen: Denies threats or abuse. Denies injuries from another. Nutritional bp screening: No deficits noted. Tuberculosis screening: No symptoms or risk factors identified. Fall Risk None identified. Assessment: 16:00 General: SEE TRIAGE NOTE. bp 18:03 Reassessment: Patient appears in no apparent distress at this time. Patient states bp symptoms have improved. 18:57 Reassessment: PT DC HOME AMBULATORY. bp Vital Signs: 15:57 BP 150 / 81; Pulse 109; Resp 18; Temp 98; Pulse Ox 97% ; bp 17:01 BP 134 / 85; Pulse 94; Resp 19; Pulse Ox 98% ; bp 18:03 BP 142 / 100; Pulse 82; Resp 19; Pulse Ox 99% ; bp 18:57 BP 137 / 75; Pulse 78; Resp 19; Pulse Ox 99% ; bp ED Course: 15:57 Patient arrived in ED. bp 15:58 Nancy Hackett FNP-C is [facility]. kb 15:59 Kin Richards MD is Attending Physician. kb 15:59 Triage completed. bp 16:00 Arm band placed on. bp 16:00 Patient has correct armband on for positive identification. Bed in low position. Call bp light in reach. Side rails up X2. 16:00 Maintain EMS IV. Dressing intact. Good blood return noted. Site clean \T\ dry. Gauge \T\ bp site: 18 GA LEFT AC. 16:11 Karl Webber, RN is Primary Nurse. bp 17:24 XRAY Chest (1 view) In Process Unspecified. EDMS 18:57 No provider procedures requiring assistance completed. IV discontinued, intact, bp bleeding controlled, No redness/swelling at site. Pressure dressing applied. Administered Medications: 17:45 Drug: NS 0.9% 1000 ml Route: IV; Rate: 1000 ml; Site: left antecubital; bp 18:58 Follow up: IV Status: Completed infusion; IV Intake: 1000ml bp 17:45 Drug: Ativan (LORazepam) 1 mg Route: PO; bp 18:59 Follow up: Response: No adverse reaction bp Medication: 18:57 VIS not applicable for this client. bp Intake: 18:58 IV: 1000ml; Total: 1000ml. bp Outcome: 18:18 Discharge ordered by . kb 18:57 Discharged to home ambulatory. bp 18:57 Condition: stable 18:57 Discharge instructions given to patient, Instructed on discharge instructions, follow up and referral plans. Demonstrated understanding of instructions, follow-up care. 18:59 Patient left the ED. bp Signatures: Dispatcher [employer] EDMS Nancy Hackett FNP-C FNP-Ckb Peltier, Brian, RN RN bp
[2022-10-13 19:24] VITALS: TEMP 98
[2022-10-13 19:26] VITALS: O2SAT 99
[2022-10-13 19:27] VITALS: BP 137/75
--- NOTE | 2022-10-14 11:36 | EKG ---
Test Date: 2022-10-13 Test Time: 15:54:00 Agricultural Education Professor: ARISTIDES MEASUREMENT RESULTS: Intervals: Rate: 105 MD: 166 QRSD: 82 QT: 320 QTc: 422 Bailey: P: 43 MD: 166 QRS: 57 T: 44 INTERPRETIVE STATEMENTS: Sinus tachycardia Possible Left atrial enlargement Borderline ECG Compared to ECG 10/12/2022 19:07:37 Sinus rhythm no longer present Electronically Signed On 10-14-22 11:34:32 SLEEP MEDICINE PHYSICIAN by Shay Serna
== END 2022-10-13 18:59 | disposition home or self-care (01) ==
LOC: ER 15:53
DX: F41.9 Anxiety disorder, unspecified (principal)
CPT/HCPCS: 93005; 85025; 80048; 36415; 83735; 85379; 84484; 83880; 71045; 96360; 99284; J7030

== ENCOUNTER 2022-10-21 09:41 | Emergency (ER) | payer BC, OTHER ==
--- OUTSIDE RECORDS SUMMARY | 2022-10-21 09:45 | XMS REPORT | Continuity of Care Document ---
:1980 Author Organization [facility] t Address [address] [place] [address] Care Team Providers Name Role Phone Pcp, Patient Does Not Have A Primary Care Physician +[id number] Doctor Unassigned, [place] Attending Clinician Unavailable Therapy, [facility] Attending Clinician Unavailable Gavino Anderson MD Attending Clinician GAVINO ANDERSON Attending Clinician Unavailable Problems This patient has no known problems. Allergies, Adverse Reactions, Alerts Allergy Allergy Status Severity Reaction(s) Onset Inactive Treating Comm ents Source Name Type Date Date Clinician NO KNOWN Drug Active Univers ALLERGIE Class ity of [facility] Social History Social Habit Start Date Stop Date Quantity Comments Source Exposure to Yes [facility] SARS-CoV-2 (event) Medica l Branch Sex Assigned At [birth year] [facility] 00:00:00 00:00:00 [facility] Smoking Status Start Date Stop Date Source Unknown if ever smoked [facility] Medications This patient has no known medications. Vital Signs Vital Name Observation Time Observation Value Comments Source Systolic blood 2021-07-19 17:10:00 142 mm[Hg] Univer sity of [facility] Diastolic blood 2021-07-19 17:10:00 87 mm[Hg] Unive rsity of [facility] Heart rate 2021-07-19 17:10:00 70 /min [facility] Body temperature 2021-07-19 17:10:00 36.89 [facility] Respiratory rate 2021-07-19 17:10:00 18 /min [facility] Oxygen saturation in 2021-07-19 17:10:00 100 /min University of Arterial blood by [facility] Pulse oximetry Branch Body height 2021-07-19 16:28:00 167.6 cm [facility] Body weight 2021-07-19 16:28:00 80.287 kg [facility] BMI 2021-07-19 16:28:00 28.57 kg/m2 [facility] Systolic blood 2021-07-19 16:28:00 134 mm[Hg] Univer sity of pressure [facility] Diastolic blood 2021-07-19 16:28:00 77 mm[Hg] Unive rsity of pressure [facility] Heart rate 2021-07-19 16:28:00 76 /min [facility] Body temperature 2021-07-19 16:28:00 36.89 Ad[place]ike [facility] Respiratory rate 2021-07-19 16:28:00 19 /min [facility] Oxygen saturation in 2021-07-19 16:28:00 98 /min [facility] Arterial blood by [facility] Pulse oximetry [place] Procedures Procedure Date / Time Performed Performing Clinician [facility] e [id number] CONSENT 2021-07-22 05:01:00 [facility]igned, [facility] Start End Encounter Admission Attending Care Care Encounter Source Date/Time Date/Time Type Type Clinicians Facility Department ID 2021-07-22 2021-07-22 Orders Doctor KUN [id number] [facility] 00:00:00 00:00:00 Only Unassigned, NICOLE [id number] [facility] [id number] Daren as [id number] [place] [address] Branch 2021-07-19 2021-07-19 Nurse Therapy, [facility] [id number] [facility] 10:06:24 11:06:24 Visit Gavino Anderson [id number] ity of [place] [id number] Mela [facility] [id number] [facility] [address] Branch 2021-07-19 2021-07-19 Outpatient Marilin ANDERSON [facility] [id number] [facility] 11:00:00 11:00:00 GAVINO weaver of [facility] Results This patient has no known results.
[2022-10-21 13:17] LABS: Absolute Lymphocytes (CBC) 2.2 K/uL (0.7-4.9); Hematocrit 46.2 % (39.6-49.0); Lymphocytes % 39.5 % (15.3-44.8); MCV 82.2 fL (80-100); RBC Red Blood Cell Count 5.62 M/uL (4.33-5.43)
[2022-10-21 13:28] LABS: SARS-CoV-2 Antigen Rapid Res Negative (Negative)
[2022-10-21 13:35] LABS: Albumin 3.8 g/dL (3.4-5.0); Bilirubin Total 0.4 mg/dL (0.2-1.0); Protein, Total 7.2 g/dL (6.4-8.2)
--- NOTE | 2022-10-21 14:10 | RAD REPORT ---
EXAM DESCRIPTION: CTAbdomen Pelvis W Contrast - 10/21/2022 1:53 pm CLINICAL HISTORY: lower abdominal pain, rectal pain COMPARISON: No comparisons TECHNIQUE: CT of the abdomen and pelvis was performed. All CT scans are performed using dose optimization technique as appropriate and may include automated exposure control or mA/KV adjustment according to patient size. FINDINGS: Lower chest: Mild circumferential thickened distal esophagus. Lung bases are clear. Liver: Hepatic steatosis Biliary: No biliary ductal dilatation. Stomach: No significant focal abnormality. Duodenum: No significant focal abnormality. Pancreas: No significant abnormality. Spleen: No significant abnormality. Adrenal: No suspicious lesions. Kidney/ureter: No hydronephrosis. No renal calculi. Retroperitoneum: No retroperitoneal adenopathy. Vascular: No aneurysm. Bowel: No significant focal abnormality. Peritoneum: No ascites or free air. Bladder: Grossly unremarkable. Reproductive: No adnexal masses. Bones: No acute fracture. Other: n/a IMPRESSION: No acute intra-abdominal or pelvic finding. No perirectal abscess identified
[2022-10-21] MEDS ORDERED: LORazepam 2 MG/ML VIAL ONE (14:15)
--- NOTE | 2022-10-21 15:44 | RAD REPORT ---
EXAM DESCRIPTION: MRI - Lumbar Spine Wo Yuri - 10/21/2022 3:24 pm CLINICAL HISTORY: radicular pain, difficulty with bowel movements COMPARISON: 09/02/2007 TECHNIQUE: Sagittal T1-weighted, T2-weighted and T2-STIR weighted sequences were obtained. Axial T1 -weighted and heavily T2-weighted sequenceswere obtained through the lumbar disc levels. FINDINGS: Lumbar bodies are normal in height and alignment. No suspicious marrow signal. No paraspin al masses. Conus is normal with no clumping or thickening of the cauda equina. T12-L1 level: No significant findings. L1-2 level: No significant findings. L2-3 level: No significant findings. L3-4 level: Subligamentous disc bulge with mild facet and ligamentum flavum hypertrophy without signi ficant neural foraminal narrowing or central spinal stenosis. L4-5 level: Subligamentous disc bulge with mild facet and ligamentum flavum hypertrophy results in sl ight flattening of ventral thecal sac but overall no significant central spinal stenosis or neural fo raminal narrowing. L5-S1 level: Subligamentous disc bulge as well as mild facet and ligamentum flavum hypertrophy withou t significant neural foraminal narrowing or central spinal stenosis. IMPRESSION: Mild degenerate disc disease without clinically significant central spinal stenosis or n eural foraminal narrowing identified. Specifically, no findings to explain a radiculopathy and no king dence of cauda equina compression.
--- NOTE | 2022-10-21 16:04 | ER ---
Nurse's Notes [facility] Name: Basil Brantley Age: 42 yrs Sex: Male : 1980 Arrival Date: 10/21/2022 Time: 09:42 Bed 23 Private MD: Maycol Shannon V Diagnosis: Sciatica, right side Presentation: 10/21 09:47 Chief complaint:. Chief complaint: Patient states: Abd pain and pressure for 1 month, ll1 more severe this week with nausea. States it feels like when he had perirectal abscess 15 years ago and was hospitalized. Coronavirus screen: Vaccine status: Patient reports being unvaccinated. Client denies travel out of the [place] in the last 14 days. At this time, the client does not indicate any symptoms associated with coronavirus-19. Ebola Screen: Patient denies travel to an Ebola-affected area in the 21 days before illness onset. Initial Sepsis Screen: Does the patient meet any 2 criteria? No. Patient's initial sepsis screen is negative. Does the patient have a suspected source of infection? Yes: Acute abdominal pain. Risk Assessment: Do you want to hurt yourself or someone else? Patient reports no desire to harm self or others. Onset of symptoms was September 20, 2022. 09:47 Acuity: ELENA 3 ll1 09:47 Method Of Arrival: Ambulatory ll1 Triage Assessment: 09:52 General: Appears uncomfortable, Behavior is cooperative, appropriate for age. Pain: ll1 Complains of pain in low abdomen Pain currently is 7 out of 10 on a pain scale. Quality of pain is described as aching. GI: Reports lower abdominal pain, nausea. Historical: - Allergies: 09:51 No Known Allergies; ll1 - PMHx: 09:47 ADD; ll1 - PSHx: 09:47 knee; Nose; Shoulder; ll1 09:51 perirectal abscess SX; ll1 - Immunization history:: Client reports having NOT received the Covid vaccine. - Social history:: Smoking status: Patient denies any tobacco usage or history of. Screenin:00 Abuse screen: Denies threats or abuse. Denies injuries from another. Nutritional tp1 screening: No deficits noted. Tuberculosis screening: No symptoms or risk factors identified. Fall Risk None identified. Assessment: 13:04 General: Appears in no apparent distress. uncomfortable, Behavior is calm, cooperative. tp1 Pain: Complains of pain in rectum Pain radiates to bilateral legs Pain currently is 9 out of 10 on a pain scale. Quality of pain is described as pressure. Neuro: Level of Consciousness is awake, alert, obeys commands, Oriented to person, place, time, situation. Neuro: Reports weakness. Cardiovascular: Patient's skin is warm and dry. Respiratory: Airway is patent Respiratory effort is even, unlabored. GI: Abdomen is flat, non-distended, Abd is soft and non tender Reports diarrhea, nausea, Patient currently denies vomiting. : No signs and/or symptoms were reported regarding the genitourinary system. EENT: No signs and/or symptoms were reported regarding the EENT system. Derm: Skin is pink, warm \T\ dry. Musculoskeletal: Circulation, motion, and sensation intact. 14:02 Reassessment: Patient appears in no apparent distress at this time. No changes from tp1 previously documented assessment. Patient and/or family updated on plan of care and expected duration. Pain level reassessed. Patient is alert, oriented x 3, equal unlabored respirations, skin warm/dry/pink. denies need for pain medication. 14:06 Reassessment: P reports feeling anxious and request medication for anxiety, provider tp1 notified. 14:57 Reassessment: No changes from previously documented assessment. Patient and/or family tp1 updated on plan of care and expected duration. Pain level reassessed. states anxiety has decreased. 16:01 Reassessment: Patient appears in no apparent distress at this time. No changes from tp1 previously documented assessment. Patient is alert, oriented x 3, equal unlabored respirations, skin warm/dry/pink. Vital Signs: 09:47 BP 162 / 94; Pulse 87; Resp 17; Temp 98.7; Pulse Ox 100% ; Weight 88.45 kg; Height 5 ll1 ft. 7 in. (170.18 cm); Pain 7/10; 13:06 BP 138 / 83; Pulse 58; Resp 18; Pulse Ox 96% on R/A; eh3 14:04 BP 156 / 93; Pulse 69; Resp 16; Pulse Ox 100% on R/A; tp1 14:57 BP 156 / 96; Pulse 56; Resp 16; Pulse Ox 100% on R/A; tp1 16:23 BP 140 / 100; Pulse 72; Resp 16; Pulse Ox 97% on R/A; tp1 09:47 Body Mass Index 30.54 (88.45 kg, 170.18 cm) ll1 ED Course: 09:42 Patient arrived in ED. as 09:42 Maycol Shannon MD is Private Physician. as 09:47 [facility]oss [facility] 09:47 Talia Rueda MD is Attending Physician. [facility] 09:47 Arm band placed on. ll1 09:51 Triage completed. ll1 12:50 Waleska Hayes, RN is Primary Nurse. tp1 13:00 Patient has correct armband on for positive identification. Placed in gown. Bed in low tp1 position. 13:00 Pulse ox on. NIBP on. tp1 13:20 Inserted saline lock: 20 gauge in left antecubital area, using aseptic technique. Blood tp1 collected. 13:20 No provider procedures requiring assistance completed. tp1 13:26 SARS RAPID Sent. tp1 13:54 CT Abd/Pelvis - IV Contrast Only In Process Unspecified. EDMS 15:09 MRI Lumbar Spine wo Con In Process Unspecified. EDMS 16:02 Rajesh Cole MD is Referral Physician. [facility] 16:24 IV discontinued, intact, bleeding controlled, No redness/swelling at site. Pressure tp1 dressing applied. Administered Medications: 14:16 Drug: Ativan (LORazepam) 1 mg Route: IVP; Site: left antecubital; tp1 14:58 Follow up: Response: Marked relief of symptoms tp1 16:23 Not Given (Patient Refused): morphine 4 mg IVP once over 4 mins tp1 16:23 Not Given (Patient Refused): Zofran (Ondansetron) 4 mg IVP once; over 2 minutes tp1 Medication: 14:03 VIS not applicable for this client. tp1 Outcome: 16:03 Discharge ordered by . jmm 16:24 Discharged to home ambulatory. tp1 16:24 Condition: good 16:24 Discharge instructions given to patient, Instructed on discharge instructions, follow up and referral plans. medication usage, Demonstrated understanding of instructions, follow-up care, medications, Prescriptions given X 2. 16:24 Patient left the ED. tp1 Signatures: Dispatcher [employer] EDUniversity of Michigan Healthkail, Shan, PA PA jmm Max, Jess as Dae, Lynsay, RN RN ll1 Waleska Hayes RN RN tp1 Katie Horton RN RN eh3
--- NOTE | 2022-10-21 16:04 | EDPHYS ---
Physician Documentation [facility] Name: Basil Brantley Age: 42 yrs Sex: Male : 1980 Arrival Date: 10/21/2022 Time: 09:42 Bed 23 Private MD: Maycol Shannon V ED Physician Talia Rueda HPI: 10/21 10:41 This 42 yrs old Male presents to ER via Ambulatory with complaints of Abdominal Pain, jmm Nausea. 10:41 This is a 42-year-old male with history of ADD that presents emerged part with m complaints of back pain and abdominal pain began approximately a month ago. Patient has some concerns due to feeling some rectal fullness that he may have developed perirectal abscess. Patient does state that the pain does radiate into his right leg as well also states having some abnormal stools that are ribbony.. Historical: - Allergies: 09:51 No Known Allergies; ll1 - PMHx: 09:47 ADD; ll1 - PSHx: 09:47 knee; Nose; Shoulder; ll1 09:51 perirectal abscess SX; ll1 - Immunization history:: Client reports having NOT received the Covid vaccine. - Social history:: Smoking status: Patient denies any tobacco usage or history of. ROS: 10:41 Constitutional: Negative for fever, chills, and weight loss, Cardiovascular: Negative jmm for chest pain, palpitations, and edema, Respiratory: Negative for shortness of breath, cough, wheezing, and pleuritic chest pain. 10:41 Abdomen/GI: Positive for abdominal pain. 10:41 Back: Positive for pain with movement. 10:41 MS/extremity: Positive for pain. 10:41 All other systems are negative. Exam: 10:41 Constitutional: This is a well developed, well nourished patient who is awake, alert, jmm and in no acute distress. Head/Face: atraumatic. Eyes: EOMI, no conjunctival erythema appreciated ENT: Moist Mucus Membranes Neck: Trachea midline, Supple Chest/axilla: Normal chest wall appearance and motion. Cardiovascular: Regular rate and rhythm. No edema appreciated Respiratory: Normal respirations, no respiratory distress appreciated 10:41 Back: Normal ROM Skin: General appearance color normal MS/ Extremity: Moves all extremities, no obvious deformities appreciated, no edema noted to the lower extremities Neuro: Awake and alert Psych: Behavior is normal, Mood is normal, Patient is cooperative and pleasant 10:41 Abdomen/GI: Inspection: abdomen appears normal, Bowel sounds: normal, Palpation: soft, mild abdominal tenderness, in the right lower quadrant and left lower quadrant, Rectal exam: is unremarkable. Vital Signs: 09:47 BP 162 / 94; Pulse 87; Resp 17; Temp 98.7; Pulse Ox 100% ; Weight 88.45 kg; Height 5 ll1 ft. 7 in. (170.18 cm); Pain 7/10; 13:06 BP 138 / 83; Pulse 58; Resp 18; Pulse Ox 96% on R/A; eh3 14:04 BP 156 / 93; Pulse 69; Resp 16; Pulse Ox 100% on R/A; tp1 14:57 BP 156 / 96; Pulse 56; Resp 16; Pulse Ox 100% on R/A; tp1 16:23 BP 140 / 100; Pulse 72; Resp 16; Pulse Ox 97% on R/A; tp1 09:47 Body Mass Index 30.54 (88.45 kg, 170.18 cm) ll1 MDM: 10:42 Patient medically screened. [facility] 16:02 Data reviewed: vital signs, nurses notes. Counseling: I had a detailed discussion with [facility] the patient and/or guardian regarding: the historical points, exam findings, and any diagnostic results supporting the discharge/admit diagnosis, the need for outpatient follow up, to return to the emergency department if symptoms worsen or persist or if there are any questions or concerns that arise at home. 18:46 ED course: CT is normal. Do not suspect perirectal abscess. Patient appears to have [facility] some radicular symptoms. MRI of the spine did not reveal any concerns for cord compression or cauda equina. Patient advised to follow-up with GI for further evaluation due to his concerns of abnormal stools. Patient otherwise given strict return precautions. Patient understood and agrees plan of care.. 10/21 10:41 Order name: CBC with Diff; Complete Time: 13:37 [facility] 10/21 10:41 Order name: CMP; Complete Time: 13:37 [facility] 10/21 10:41 Order name: Lipase; Complete Time: 13:37 [facility] 10/21 10:41 Order name: CT Abd/Pelvis - IV Contrast Only; Complete Time: 14:25 [facility] 10/21 12:43 Order name: SARS RAPID; Complete Time: 13:37 [facility] 10/21 14:36 Order name: MRI Lumbar Spine wo Con; Complete Time: 15:48 [facility] 10/21 10:41 Order name: IV Saline Lock; Complete Time: 13:26 [facility] 10/21 10:41 Order name: Labs collected and sent; Complete Time: 13:26 [facility] Administered Medications: 14:16 Drug: Ativan (LORazepam) 1 mg Route: IVP; Site: left antecubital; tp1 14:58 Follow up: Response: Marked relief of symptoms tp1 16:23 Not Given (Patient Refused): morphine 4 mg IVP once over 4 mins tp1 16:23 Not Given (Patient Refused): Zofran (Ondansetron) 4 mg IVP once; over 2 minutes tp1 Disposition Summary: 10/21/22 16:03 Discharge Ordered Location: Home [facility] Condition: Stable [facility] Diagnosis - Sciatica, right side [facility] Followup: [facility] - With: Rajesh Cole MD - When: 2 - 3 days - Reason: Recheck today's complaints, Continuance of care, Re-evaluation by your physician Discharge Instructions: - Discharge Summary Sheet [facility] - Sciatica [facility] Forms: - Medication Reconciliation Form [facility] - Thank You Letter [facility] - Antibiotic Education [facility] - Prescription Opioid Use [facility] Prescriptions: - Zanaflex 4 mg Oral Tablet - take 1 tablet by ORAL route every 8 hours As needed; 20 tablet; Refills: 0, [facility] Product Selection Permitted - Diclofenac Sodium 75 mg Oral Tablet Sustained Release - take 1 tablet by ORAL route 2 times per day; 30 tablet; Refills: 0, Product [facility] Selection Permitted Signatures: Dispatcher [employer] Shan Shah PA PA jmm Lewis, Lynsay RN RN ll1 Waleska Hayes RN RN tp1
[2022-10-21 16:40] VITALS: TEMP 98.7
[2022-10-21 16:45] VITALS: BP 140/100; O2SAT 97
== END 2022-10-21 16:24 | disposition home or self-care (01) ==
LOC: ER 09:41
DX: M54.31 Sciatica, right side (principal); Z20.822 Contact with and (suspected) exposure to COVID-19
CPT/HCPCS: 85025; 36415; 83690; 80053; 74177; 72148; 96374; 99284; 87811; Q9967

== ENCOUNTER 2023-04-07 07:19 | Observation (INO) | payer BC, OTHER ==
--- OUTSIDE RECORDS SUMMARY | 2023-04-07 07:22 | XMS REPORT | Continuity of Care Document ---
:1980 Author Organization [facility] t Address [address] [place] [address] Care Team Providers Name Role Phone PCP, PATIENT DOES NOT HAVE A Primary Care Physician Unavaila ble Pcp, Patient Does Not Have A Attending Clinician +[id number] Doctor Unassigned, [place] Attending Clinician Unavailable Therapy, [facility] Attending Clinician Unavailable Gavino Anderson MD Attending Clinician GAVINO ANDERSON Attending Clinician Unavailable Payers Payer Name Policy Type Policy Number Effective Date Expiration Date Jeanette DODD II [id number] 2020 00:00:00 Problems This patient has no known problems. Allergies, Adverse Reactions, Alerts Allergy Allergy Status Severity Reaction(s) Onset Inactive Treating Comm ents Source Name Type Date Date Clinician NO KNOWN Drug Active Univers ALLERGIE Class ity of [facility] Social History Social Habit Start Date Stop Date Quantity Comments Source [facility] SARS-CoV-2 (event[facility] Medica l Branch [facility] [birth year] [facility] [place] [facility] Medical Branch Smoking Status Start Date Stop Date Source Tobacco smoking consumption [facility] Medical unknown Branch Medications This patient has no known medications. Vital Signs Vital Name Observation Time Observation Value Comments Source Systolic blood 2021-07-19 17:10:00 142 mm[Hg] Univer sity of [facility] Diastolic blood 2021-07-19 17:10:00 87 mm[Hg] Unive rsity of pressure [place] [facility] Heart rate 2021-07-19 17:10:00 70 /min [facility] [place] [facility] [place] Body temperature 2021-07-19 17:10:00 36.89 Adenike Univ ers[facility] [place] [facility] Respiratory rate 2021-07-19 17:10:00 18 /min Univ ers[facility] [place] [facility] Oxygen saturation in 2021-07-19 17:10:00 100 /min University of Arterial blood by [facility] Pulse oximetry Branch Body height 2021-07-19 16:28:00 167.6 cm Universi ty of [facility] Body weight 2021-07-19 16:28:00 80.287 kg Universi ty of [facility] Branch BMI 2021-07-19 16:28:00 28.57 kg/m2 Universi ty of [facility] Systolic blood 2021-07-19 16:28:00 134 mm[Hg] Univer sity of pressure [facility] Diastolic blood 2021-07-19 16:28:00 77 mm[Hg] Unive rsity of pressure [facility] Heart rate 2021-07-19 16:28:00 76 /min [facility] [place] [facility] Body temperature 2021-07-19 16:28:00 36.89 Adenike Univ ersity of [facility] Branch Respiratory rate 2021-07-19 16:28:00 19 /min Univ ersity of [facility] Branch Oxygen saturation in 2021-07-19 16:28:00 98 /min University of Arterial blood by [place] [facility] Pulse oximetry Branch Procedures Procedure Date / Time Performed Performing Clinician [facility] e NON-[facility] ORDERS 2023-03-11 05:01:00 Doctor Unassigned, No Univer sity of [facility] [id number] CONSENT 2021-07-22 05:01:00 [facility], [facility] Start End Encounter Admission Attending Care Care Encounter Source Date/Time Date/Time Type Type Clinicians Facility Department ID 2023-04-12 2023-04-12 Outpatient R [facility] [id number] Univers 09:00:00 09:00:00 ity of [facility] 2023-03-12 2023-03-12 Telephone Pcp, [facility] [id number] Univers 00:00:00 00:00:00 Patient LESLIE [id number] i ty [facility] [id number] Daren as Have A PROFESSIO [phone] Pr dical NAL 059 [facility] 2023-03-11 2023-03-11 Orders Doctor KUN [id number] Univers 00:00:00 00:00:00 Only Unassigned, NICOLE [id number] ity of [place] [facility] [id number] Daren as [id number] [facility] [address] [place] 2021-07-22 2021-07-22 Orders Doctor KUN [id number] Univers 00:00:00 00:00:00 Only Unassigned, NICOLE [id number] ity of [place] [facility] [id number] Daren as [id number] [address] 2021-07-19 2021-07-19 Nurse Therapy, [facility] [id number] Univers 10:06:24 11:06:24 Visit Gavino [place] [id number] ity of [place] [id number] [place] [id number] [facility] 053 Branch 2021-07-19 2021-07-19 Outpatient Marilin ANDERSON [facility] [id number] Univers 11:00:00 11:00:00 GAVINO weaver of [facility] Results This patient has no known results.
[2023-04-07 07:49] LABS: Absolute Lymphocytes (CBC) 2.7 K/uL (0.7-4.9); Hematocrit 46.6 % (39.6-49.0); Lymphocytes % 48.1 % (15.3-44.8); MCV 81.1 fL (80-100); MPV 9.3 fL (7.6-11.3); RBC Red Blood Cell Count 5.75 M/uL (4.33-5.43)
[2023-04-07] MEDS ORDERED: LORAZEPAM 1 MG TABLET ONE (07:49)
[2023-04-07 07:55] LABS: Protime INR 0.87
[2023-04-07 08:08] LABS: Bilirubin Direct 0.2 mg/dL (0-0.2); Bilirubin Indirect, Calculated 0.7 mg/dL (0.2-0.8); Bilirubin Total 0.9 mg/dL (0.2-1.0); Magnesium 2.2 mg/dL (1.6-2.4); Potassium 3.8 mEq/L (3.5-5.1); Protein, Total 7.5 g/dL (6.4-8.2); Troponin High Sensitivity 5.1 pg/mL (<58.9)
--- NOTE | 2023-04-07 08:12 | RAD REPORT ---
EXAM DESCRIPTION: CT - Head Brain Wo Cont - 04/07/2023 7:59 am CLINICAL HISTORY: STROKE ALERT Headache, drowsiness, CVA symptomology COMPARISON: Head angio dated 04/07/2023; Head Brain Wo Cont dated 10/12/2022 TECHNIQUE: All CT scans are performed using dose optimization technique as appropriate and may inclu de automated exposure control or mA/KV adjustment according to patient size. FINDINGS: No intracranial hemorrhage, hydrocephalus or extra-axial fluid collection.No areas of brai n edema or evidence of midline shift. The paranasal sinuses and mastoids are clear. The calvarium is intact. IMPRESSION: No acute intracranial abnormality. If there is continued clinical concern for CVA, MR imaging of the brain would be recommended.
--- NOTE | 2023-04-07 08:21 | RAD REPORT ---
EXAM DESCRIPTION: CT - Head angio - 04/07/2023 7:59 am CLINICAL HISTORY: l sided numbness Headache, drowsiness, CVA symptomology COMPARISON: Head Brain Wo Cont dated 10/12/2022; Head Brain Wo Cont dated 01/01/2021 TECHNIQUE: CT angiography of the head was performed with MIPs. All CT scans are performed using dose optimization technique as appropriate and may include automated exposure control or mA/KV adjustment according to patient size. FINDINGS: No evidence of large vessel occlusion. No evidence of aneurysm is detected. No flow-limiti ng stenosis or vascular malformation identified. Antegrade flow is seen in the vertebral arteries. The vertebral arteries are codominant. The visualized dural venous sinuses are patent. IMPRESSION: No significant flow abnormality is detected.
--- NOTE | 2023-04-07 08:24 | RAD REPORT ---
EXAM DESCRIPTION: CT - Neck Angio - 04/07/2023 7:59 am CLINICAL HISTORY: l sided numbness Headache, drowsiness, CVA symptomology COMPARISON: No comparisons TECHNIQUE: CT angiography of the neck vessels was performed with MIPs. All CT scans are performed using dose optimization technique as appropriate and may include automated exposure control or mA/KV adjustment according to patient size. FINDINGS: A left aortic arch is identified with normal three vessel configuration of the great vesse ls. No significant flow abnormality is seen of the common carotid bilaterally. No significant stenosis is identified involving the cervical segments of both internal carotid arteri es. Normal flow is seen within both vertebral arteries. IMPRESSION: No significant flow abnormality of the neck vessels is identified. NASCET criteria used. Mild 0-49% stenosis Moderate 50-69% stenosis Severe 70-99% stenosis
--- NOTE | 2023-04-07 09:44 | RAD REPORT ---
EXAM DESCRIPTION: RAD - Chest Single View - 04/07/2023 8:52 am CLINICAL HISTORY: numbness Chest pain. COMPARISON: Chest Single View dated 10/13/2022; Chest Single View dated 10/12/2022; Chest Single Vie w dated 05/14/2022; Chest Pa And Lat (2 Views) dated 02/15/2022 FINDINGS: Portable technique limits examination quality. The lungs are grossly clear. The heart is normal in size. No displaced fractures. IMPRESSION: No acute intrathoracic process suspected.
--- NOTE | 2023-04-07 09:48 | ER ---
Nurse's Notes [facility] Name: Basil Brantley Age: 42 yrs Sex: Male : 1980 Arrival Date: 04/07/2023 Time: 07:19 Bed 7 Private MD: Diagnosis: left sided numbness Presentation: 04/07 07:27 Chief complaint: Patient states: numbness to left side of body for months , sometimes iw it feels like his left foot is dragging, the sensation has been constant since last night, is [facility] Coronavirus screen: At this time, the client does not indicate any symptoms associated with coronavirus-19. Ebola Screen: Patient negative for fever greater than or equal to 101.5 degrees Fahrenheit, and additional compatible Ebola Virus Disease symptoms Patient denies exposure to infectious person. Patient denies travel to an Ebola-affected area in the 21 days before illness onset. No symptoms or risks identified at this time. Initial Sepsis Screen: Does the patient meet any 2 criteria? No. Patient's initial sepsis screen is negative. Does the patient have a suspected source of infection? No. Patient's initial sepsis screen is negative. Risk Assessment: Do you want to hurt yourself or someone else? Patient reports no desire to harm self or others. Onset of symptoms was 2022. 07:27 Method Of Arrival: Ambulatory iw 07:27 Acuity: ELENA 3 iw Historical: - Allergies: 07:29 No Known Allergies; iw - Home Meds: 07:29 sertraline oral [Active]; Xanax Oral [Active]; iw - PMHx: 07:29 ADD; iw - PSHx: 07:29 knee; Nose; perirectal abscess SX; Shoulder; iw Screenin:47 [facility] ED Fall Risk Assessment (Adult) History of falling in the last 3 months, kc6 including since admission No falls in past 3 months (0 pts) Confusion or Disorientation No (0 pts) Intoxicated or Sedated No (0 pts) Impaired Gait No (0 pts) Mobility Assist Device Used No (0 pt) Altered Elimination No (0 pt) Score/Fall Risk Level 0 - 2 = Low Risk Oriented to surroundings, Maintained a safe environment, Educated pt \T\ family on fall prevention, incl call for assistance when getting out of bed, Assessed \T\ reinforced patient's understanding of fall precautions, Hourly rounding (assess needs \T\ fall precautionary measures) done. Abuse screen: Denies threats or abuse. Denies injuries from another. Nutritional screening: No deficits noted. Tuberculosis screening: No symptoms or risk factors identified. Assessment: 07:45 General: Appears in no apparent distress. comfortable, Behavior is calm, cooperative, kc6 appropriate for age. Pain: Denies pain. Neuro: Morris Agitation-Sedation Scale (RASS): 0 - Alert and Calm Level of Consciousness is awake, alert, obeys commands, Oriented to person, place, time, situation, Appropriate for age [employer] are equal bilaterally Moves all extremities. Gait is steady, Speech is normal, Facial symmetry appears normal, Pupils are PERRLA, Intact Reports numbness in left arm and left leg weakness in left arm and left leg. Cardiovascular: Heart tones S1 S2 present Capillary refill < 3 seconds Rhythm is sinus rhythm. Respiratory: Airway is patent Trachea midline Respiratory effort is even, unlabored, Respiratory pattern is regular, symmetrical. GI: No signs and/or symptoms were reported involving the gastrointestinal system. : No signs and/or symptoms were reported regarding the genitourinary system. EENT: No signs and/or symptoms were reported regarding the EENT system. Derm: No signs and/or symptoms reported regarding the dermatologic system. Skin is intact, Skin is pink, warm \T\ dry. Musculoskeletal: No signs and/or symptoms reported regarding the musculoskeletal system. Circulation, motion, and sensation intact. Capillary refill < 3 seconds, Range of motion: intact in all extremities. 08:45 Reassessment: Patient appears in no apparent distress at this time. No changes from kc6 previously documented assessment. Patient and/or family updated on plan of care and expected duration. Pain level reassessed. Patient is alert, oriented x 3, equal unlabored respirations, skin warm/dry/pink. 09:45 Reassessment: Patient appears in no apparent distress at this time. No changes from kc6 previously documented assessment. Patient and/or family updated on plan of care and expected duration. Pain level reassessed. Patient is alert, oriented x 3, equal unlabored respirations, skin warm/dry/pink. 10:45 Reassessment: Patient appears in no apparent distress at this time. No changes from kc6 previously documented assessment. Patient and/or family updated on plan of care and expected duration. Pain level reassessed. Patient is alert, oriented x 3, equal unlabored respirations, skin warm/dry/pink. 11:20 Reassessment: attempted to call report to 4th floor. stated nurse Riddhi will call me kc6 back. 11:45 Reassessment: Patient appears in no apparent distress at this time. No changes from kc6 previously documented assessment. Patient and/or family updated on plan of care and expected duration. Pain level reassessed. Patient is alert, oriented x 3, equal unlabored respirations, skin warm/dry/pink. Vital Signs: 07:27 BP 176 / 89; Pulse 83; Resp 16; Pulse Ox 100% on R/A; iw 08:31 BP 120 / 68; Pulse 50; Resp 13 S; Pulse Ox 98% on R/A; kc6 09:18 BP 117 / 74; Pulse 52; Resp 13 S; Pulse Ox 94% on R/A; kc6 10:42 BP 119 / 79; Pulse 57; Resp 16 S; Pulse Ox 97% on R/A; kc6 ED Course: 07:21 Patient arrived in ED. ts1 07:21 Kin Richards MD is Attending Physician. rt 07:24 Ivette Reeves, RN is Primary Nurse. kc6 07:26 Arm band placed on Patient placed in an exam room, on a stretcher. ll1 07:29 Triage completed. iw 07:41 Ivette Reeevs, RN is Primary Nurse. kc6 07:47 Patient has correct armband on for positive identification. Bed in low position. Call kc6 light in reach. Side rails up X 1. 07:47 Inserted saline lock: 20 gauge in right forearm, using aseptic technique. Blood kc6 collected. 07:59 Head Brain Wo Cont In Process Unspecified. EDMS 08:01 CT Neck Angio In Process Unspecified. EDMS 08:01 CT Head Angio In Process Unspecified. EDMS 08:54 Stroke CXR 1 View In Process Unspecified. EDMS 09:46 Wes Mejia is Hospitalizing Provider. rt 11:28 No provider procedures requiring assistance completed. Patient admitted, IV remains in kc6 place. Administered Medications: 07:45 Drug: LORazepam PO 1 mg Route: PO; kc6 08:40 Follow up: Response: No adverse reaction; Anxiety decreased; RASS: Alert and Calm (0) kc6 09:45 Drug: Aspirin PO 325 mg Route: PO; kc6 10:42 Follow up: Response: No adverse reaction kc6 Medication: 11:28 VIS not applicable for this client. kc6 Outcome: 09:47 Decision to Hospitalize by Provider. rt 11:28 Admitted to Med/surg accompanied by tech, via wheelchair, room 413, with chart, Report kc6 called to DANIEL Hannon 11:28 Condition: stable 11:28 Instructed on the need for admit. 12:29 Patient left the ED. ll1 Signatures: Dispatcher [employer] EDMS Nena Felder RN RN iw Bertha Pearl RN RN ll1 Ivette Reeves RN RN kc6 Kin Richards MD MD rt Harmony Navas PAS PAS ts1
--- NOTE | 2023-04-07 09:48 | EDPHYS ---
Physician Documentation [facility] Name: Basil Brantley Age: 42 yrs Sex: Male : 1980 Arrival Date: 04/07/2023 Time: 07:19 Bed 7 Private MD: ED Physician Kin Richards HPI: 04/07 07:36 This 42 yrs old Male presents to ER via Ambulatory with complaints of Numbness. rt 07:36 Patient presents to the ED with a left-sided numbness. Patient states that has been rt intermittent for the past several months, is currently being worked up by the GA. Patient states that occurred and was more pronounced yesterday afternoon. He had associated weakness to his left arm, left leg. Patient states that he sometimes speaks inappropriate words. Patient states that as the symptoms are more intense and have not relented, he came to the ED for further evaluation. Denies other acute complaints.. Historical: - Allergies: 07:29 No Known Allergies; iw - Home Meds: 07:29 sertraline oral [Active]; Xanax Oral [Active]; iw - PMHx: 07:29 ADD; iw - PSHx: 07:29 knee; Nose; perirectal abscess SX; Shoulder; iw ROS: 07:36 Constitutional: Negative for fever, chills, and weight loss, Cardiovascular: Negative rt for chest pain, palpitations, and edema, Respiratory: Negative for shortness of breath, cough, wheezing, and pleuritic chest pain, Abdomen/GI: Negative for abdominal pain, nausea, vomiting, diarrhea, and constipation, MS/Extremity: Negative for injury and deformity, Skin: Negative for injury, rash, and discoloration, Psych: Negative for depression, anxiety, suicide ideation, homicidal ideation, and hallucinations. 07:36 Neuro: Positive for numbness, Negative for altered mental status. Exam: 07:36 Constitutional: This is a well developed, well nourished patient who is awake, alert, rt and in no acute distress. Head/Face: Normocephalic, atraumatic. Chest/axilla: Normal chest wall appearance and motion. Nontender with no deformity. No lesions are appreciated. Cardiovascular: Regular rate and rhythm with a normal S1 and S2. No gallops, murmurs, or rubs. Normal PMI, no JVD. No pulse deficits. Respiratory: Lungs have equal breath sounds bilaterally, clear to auscultation and percussion. No rales, rhonchi or wheezes noted. No increased work of breathing, no retractions or nasal flaring. Abdomen/GI: Soft, non-tender, with normal bowel sounds. No distension or tympany. No guarding or rebound. No evidence of tenderness throughout. Skin: Warm, dry with normal turgor. Normal color with no rashes, no lesions, and no evidence of cellulitis. MS/ Extremity: Pulses equal, no cyanosis. Neurovascular intact. Full, normal range of motion. Psych: Awake, alert, with orientation to person, place and time. Behavior, mood, and affect are within normal limits. 07:36 Eyes: Extraocular muscles intact, no visual field deficits. 07:36 ECG was reviewed by the Attending Physician. 07:36 Neuro: Sensory deficits on the left arm, face, leg, no motor deficits noted, cranial nerves intact, speech normal. Vital Signs: 07:27 BP 176 / 89; Pulse 83; Resp 16; Pulse Ox 100% on R/A; iw 08:31 BP 120 / 68; Pulse 50; Resp 13 S; Pulse Ox 98% on R/A; kc6 09:18 BP 117 / 74; Pulse 52; Resp 13 S; Pulse Ox 94% on R/A; kc6 10:42 BP 119 / 79; Pulse 57; Resp 16 S; Pulse Ox 97% on R/A; kc6 MDM: 07:24 Patient medically screened. rt 09:47 Differential diagnosis: CVA, TIA, metabolic disorder. Data reviewed: vital signs, rt nurses notes. Consideration of Admission/Observation Patient was admitted/placed on observation. Management of patient was discussed with the following: Hospitalist: Agrees to admit. I considered the following discharge prescriptions or medication management in the emergency department Medications were administered in the Emergency Department. See MAR. Independent interpretation of the following test(s) in the Emergency Department CT Scan: My interpretation is No hemorrhage seen on my interpretation of the CT scan images. Counseling: I had a detailed discussion with the patient and/or guardian regarding: the historical points, exam findings, and any diagnostic results supporting the discharge/admit diagnosis, lab results, radiology results, the need for further work-up and treatment in the hospital. ED course: Greater than 24 hours since the onset of symptoms, is not a thrombolytic candidate. 04/07 07:32 Order name: Basic Metabolic Panel; Complete Time: 08:09 rt 04/07 07:32 Order name: CBC with Diff; Complete Time: 08:09 rt 04/07 07:32 Order name: Hepatic Function; Complete Time: 08:09 rt 04/07 07:32 Order name: High Sensitivity Troponin; Complete Time: 08:09 rt 04/07 07:32 Order name: Magnesium; Complete Time: 08:09 rt 04/07 07:32 Order name: Protime (+inr); Complete Time: 08:09 rt 04/07 07:32 Order name: Ptt, Activated; Complete Time: 08:09 rt 04/07 12:00 Order name: Phosphorus EDMS 04/07 12:00 Order name: T4 Free EDMS 04/07 12:00 Order name: Magnesium EDMS 04/07 12:00 Order name: Thyroid Stimulating Hormone EDMS 04/07 07:32 Order name: Stroke CXR 1 View; Complete Time: 09:49 rt 04/07 07:32 Order name: CT Neck Angio; Complete Time: 09:29 rt 04/07 07:32 Order name: CT Head Angio; Complete Time: 09:29 rt 04/07 07:59 Order name: Head Brain Wo Cont; Complete Time: 09:29 EDMS 04/07 07:32 Order name: EKG; Complete Time: 07:33 rt 04/07 07:32 Order name: Accucheck; Complete Time: 07:45 rt 04/07 07:32 Order name: Cardiac monitoring; Complete Time: 07:45 rt 04/07 07:32 Order name: EKG - Nurse/Tech; Complete Time: 07:45 rt 04/07 07:32 Order name: IV Saline Lock; Complete Time: 07:45 rt 04/07 07:32 Order name: Labs collected and sent; Complete Time: 07:45 rt 04/07 07:32 Order name: NPO; Complete Time: 07:36 rt 04/07 07:32 Order name: O2 Per Protocol; Complete Time: 07:45 rt 04/07 07:32 Order name: O2 Sat Monitoring; Complete Time: 07:45 rt 04/07 07:32 Order name: Stroke Swallow Screen; Complete Time: 07:45 rt EC:36 Rate is 64 beats/min. Rhythm is regular, Normal Sinus Rhythm with No ectopy. QRS [place] rt is Normal. NC interval is normal. QRS interval is normal. QT interval is normal. No Q waves. T waves are Normal. No ST changes noted. Interpreted by me. Administered Medications: 07:45 Drug: LORazepam PO 1 mg Route: PO; kc6 08:40 Follow up: Response: No adverse reaction; Anxiety decreased; RASS: Alert and Calm (0) kc6 09:45 Drug: Aspirin PO 325 mg Route: PO; kc6 10:42 Follow up: Response: No adverse reaction kc6 Disposition Summary: 04/07/23 09:47 Hospitalization Ordered Hospitalization Status: Observation rt Provider: Wes Mejia rt Location: Telemetry/MedSurg (observation) rt Condition: Stable rt Problem: new rt Symptoms: are unchanged rt Bed/Room Type: Standard rt Room Assignment: 413(04/07/23 10:58) bd Diagnosis - left sided numbness rt Forms: - Medication Reconciliation Form rt - SBAR form rt Signatures: Dispatcher [employer] EDBryanna Donato Irene, RN DANIEL iw Ivette Reeves RN RN kc6 Kin Richards MD MD rt Corrections: (The following items were deleted from the chart) 07:59 07:33 CT-STROKE BRAIN W/O CONTRAST+CT.RAD.BRZ ordered. EDHI EDMS 10:58 09:47 rt bd
[2023-04-07] MEDS ORDERED: ASPIRIN EC 325 MG TABLET PO ONE (09:50)
[2023-04-07] MEDS ORDERED: ACETAMINOPHEN 325 MG TABLET PO PRN (10:45)
[2023-04-07] MEDS ORDERED: HYDROCODONE/APAP 5/325 MG TAB PO PRN (10:45)
[2023-04-07] MEDS ORDERED: ONDANSETRON 4 MG/2 ML VIAL IV PRN (10:53)
--- NOTE | 2023-04-07 11:00 | P.HP ---
Certification for Inpatient Patient admitted to: Inpatient With expected LOS: >2 Midnights Patient will require the following post-hospital care: None Practitioner: I am a practitioner with admitting privileges, knowledge of patient current condition, hospital course, and medical plan of care. Services: Services provided to patient in accordance with Admission requirements found in Title 42 Section 412.3 of the Code of Federal Regulations Patient History Date of Service: 04/07/23 Reason for admission: Left-sided numbness\weakness History of Present Illness: Patient is a 42-year-old male with a past medical history significant for ADD, anxiety disorder, depression who presents with complaint of intermittent left- sided numbness and weakness that has been ongoing for at least 3 months. Patient reported that symptoms have become worse over time. Patient also reported that she has been having neck\upper\lower back pain that has been ongo ing for the past 1 year. Patient rated pain as 9/10 in severity and described pain as sharp in quality. Patient reported associated signs and symptoms of headache and poor gait. Patient denies any other signs or symptoms. Symptoms are aggravated by movement and relieved by nothing. Patient decided to present to the hospital due to worsening symptoms. I Allergies No Known Allergies Allergy (Unverified 04/07/23 11:03) - Past Medical/Surgical History -: Anxiety disorder -: Depression -: ADD. Past Surgical History: Reviewed- Non-Contributory - Family History Family History: Reviewed- Non-Contributory - Social History Smoking Status: Former smoker Alcohol use: No CD- Drugs: No Caffeine use: Yes Place of Residence: Home Review of Systems General: Weakness Eyes: Unremarkable ENT: Unremarkable Respiratory: Unremarkable Cardiovascular: Unremarkable Gastrointestinal: Unremarkable Musculoskeletal: Neck Pain, Back Pain Integumentary: Unremarkable Neurological: Weakness, Other (Headache, poor gait ) Lymphatics: Unremarkable Physical Examination - Physical Exam General: Alert, In no apparent distress, Oriented x3, Cooperative HEENT: Atraumatic, PERRLA, Mucous membr. moist/pink, EOMI, Sclerae nonicteric Neck: Supple, 2+ carotid pulse no bruit, No LAD, Without JVD or thyroid abnormality Respiratory: Clear to auscultation bilaterally, Normal air movement Cardiovascular: Regular rate/rhythm, Normal S1 S2 Capillary refill: <2 Seconds Gastrointestinal: Normal bowel sounds, No tenderness Musculoskeletal: No clubbing, No swelling, Tenderness Integumentary: No rashes Neurological: Normal speech, Normal tone, Normal affect Lymphatics: No axilla or inguinal lymphadenopathy - Studies Laboratory Data (last 24 hrs) 04/07/23 07:39: PT 9.6, INR 0.87, APTT 30.4 04/07/23 07:39: WBC 5.60, Hgb 15.5, Hct 46.6, Plt Count 183 04/07/23 07:39: Sodium 135 L, Potassium 3.8, BUN 11, Creatinine 1.15, Glucose 103, Magnesium 2.2, Total Bilirubin 0.9, AST 28, ALT 63 H, Alkaline Phosphatase 77 Assessment and Plan - Plan --Left-sided numbness\weakness. CTA head\neck and CT head negative for any acute abnormality. MRI brain pending for further evaluation. Neurology consulted. Echocardiogram pending to assess for possible source of suspected TIA. Will await further recommendations. --Cervicalgia\back pain. MRI cervical spine\thoracic\lumbar spine pending for further evaluation. We will manage pain with current pain medication regimen. --ADD. Continue home medications when available. --Depression\anxiety disorder. Continue home medications. --Headache. Tylenol as needed. --Abnormality of gait and mobility. Unclear etiology. MRI brain pending. PT eval and treat. Continue supportive care. -- CKD 2. Stable. We will continue to monitor renal functions. --Elevated blood pressure without a diagnosis of hypertension. We will manage BP with hydralazine as needed. --DVT prophylaxis with Lovenox subQ. Discharge Plan: Home Plan to discharge in: Greater than 2 days - Advance Directives Does patient have a Living Will: No Does patient have a Durable POA for Healthcare: No - Code Status/Comfort Care Code Status Assessed: Yes Physician Review: Patient Assessed, Agree with Above Assessment and Plan Critical Care: No
[2023-04-07 12:00] LABS: Magnesium 2.3 mg/dL (1.6-2.4); Phosphorus 2.4 mg/dL (2.5-4.9); Thyroid Stimulating Hormone 0.629 uIU/mL (0.358-3.740)
[2023-04-07] MEDS ORDERED: HYDRALAZINE HCL 20 MG/ML VIAL IV PRN (13:24)
[2023-04-07 14:24] VITALS: BMI 29.7
[2023-04-07 15:10] LABS: Specific Gravity > 1.030 (1.005-1.030); Urine Bilirubin NEGATIVE (Negative); Urine Blood Negative (Negative); Urine Clarity Clear (Clear); Urine Color Light-Yellow (Yellow); Urine Glucose NEGATIVE (Negative); Urine Protein NEGATIVE (Negative); Urine Urobilinogen Normal (Normal); Urine pH 6.5 (5.0-7.0)
[2023-04-07] MEDS ORDERED: LORazepam 2 MG/ML VIAL IV ONE (16:34)
--- NOTE | 2023-04-07 18:38 | RAD REPORT ---
EXAM DESCRIPTION: MRI - Thoracic Spine Wo Contr - 04/07/2023 5:58 pm CLINICAL HISTORY: Upper Back pain COMPARISON: C Spine Wo Cont dated 04/07/2023 TECHNIQUE: Multiplanar multisequence MRI of the thoracic spine, obtained without IV contrast. FINDINGS: The vertebral body heights and disc spaces are maintained. Marrow pattern of the thoracic spine is within normal limits. Asymmetric central disc extrusion at T8-9 extending to the right, indenting the ventral aspect of the cord. Canal remains patent. A small left subarticular disc extrusion at T7-8, also minimally indents the lateral aspect of the cord and possibly narrows the lateral recess. No other significant canal s tenosis or foraminal stenosis at any level. No paraspinal mass or hematoma. The thoracic cord is normal in size and signal. IMPRESSION: Disc extrusions at T7-8 and T8-9 as above, resulting in indentation of the cord contour. No significant canal or foraminal stenosis. No abnormal cord signal.
--- NOTE | 2023-04-07 18:41 | RAD REPORT ---
EXAM DESCRIPTION: MRI - C Spine Wo Cont - 04/07/2023 5:58 pm CLINICAL HISTORY: Neck pain COMPARISON: None. TECHNIQUE: Multiplanar multisequence MRI of the cervical spine, obtained without IV contrast. FINDINGS: Cervical vertebral bodies are normal in height and alignment. No suspicious marrow edema o r marrow replacing process. Cerebellar tonsils and mid-line skull base show no suspicious finding. No significant finding at the C1 and C2 levels. C2-3 level: No significant findings. C3-4 level: Mild posterior disc bulge. No significant canal or foraminal stenosis. . C4-5 level: Small central disc protrusion. No significant canal or foraminal stenosis. C5-6 level: No significant findings. C6-7 level: Mild posterior disc bulge. No significant canal or foraminal stenosis. C7-T1 level: No significant findings. Cervical cord shows no focal narrowing, expansion or signal abnormality. IMPRESSION: No acute findings. Mild disc bulges and a small protrusion at C4-5. No significant canal or foraminal stenosis. No abnormal cord signal.
--- NOTE | 2023-04-07 18:52 | RAD REPORT ---
EXAM DESCRIPTION: MRI - Brain Wo Cont - 04/07/2023 6:39 pm CLINICAL HISTORY: Left sided Numbness Weakness COMPARISON: Head CT 04/07/2023 TECHNIQUE: Multiplanar multisequence MRI of the brain performed without IV contrast. FINDINGS: No evidence of acute infarct or other diffusion signal abnormality. No evidence of acute intracranial hemorrhage or abnormal extra-axial fluid collections. Ventricular caliber within normal for age. Midline structures are unremarkable. No mass effect or midline shift. Major vascular flow voids are preserved. Mastoid air cells and paranasal sinuses are clear. IMPRESSION: No acute intracranial process. No evidence of ventriculomegaly or mass effect.
--- NOTE | 2023-04-07 19:28 | RAD REPORT ---
EXAM DESCRIPTION: MRI - Lumbar Spine Wo Con - 04/07/2023 7:06 pm CLINICAL HISTORY: Low back pain COMPARISON: Lumbar Spine Wo Con dated 10/21/2022; MRISPINE LUMBAR W WO CON dated 09/02/2007 TECHNIQUE: Multiplanar multisequence MRI of the lumbar spine performed, withoutintravenous gadoliniu m contrast. FINDINGS: Preserved lumbar lordosis without spondylolisthesis. 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 Vertebral body heights a re well maintained. No suspicious marrow signal. No paraspinal masses or edema. Conus terminates at the appropriate level. Cauda equina roots are unremarkable, with no clumping or t hickening. T12-L1: No significant findings. L1-L2: No significant findings. L2-L3: No significant findings. L3-L4 level: No significant findings. L4-L5 level: No significant findings. L5-S1 level: No significant findings. IMPRESSION: No acute findings on MRI of the lumbar spine.
[2023-04-07] MEDS ORDERED: ALPRAZOLAM 0.5 MG TABLET PO PRN (20:20)
[2023-04-07 20:50] VITALS: O2SAT 96
--- NOTE | 2023-04-08 02:31 | CON ---
Reason For Consultation: Consultation called because of left-sided numbness. History Of Present Illness: Mr. Brantley is a 42-year-old patient with history of depression, anxi ety, and attention deficit disorder, who from chart review has had multiple hospital emergency room v isits and admissions over the last 3 years with similar complaints of numbness, weakness, and headach e. During all of those visits, his imaging, which have been multiple, including brain CT scans, MRIs lumbar, cervical, and thoracic spine imaging were all essentially unremarkable. For this visit, he said symptoms have been ongoing off and on for about 3 months with left-sided numbness and some inter mittent weakness. Symptoms may fluctuate. He would rate his pain as up to 9/10, sharp and involving the entire left side. He denies weakness on my questioning, but weakness was noted in the chart by the physician's school bus driver/teacher assistant, who evaluated the patient. Since admission, symptoms have not improved. Past Medical History: As noted. Allergies: NO KNOWN DRUG ALLERGIES. Family History: Noncontributory. Social History: No current alcohol use. He is a former smoker. No IV drug use. Review of Systems: As noted, left-sided weakness. Otherwise, no significant fevers, chills, myalgias, arthralgias, rash , headache, or weight change. Psychiatric history says is stable. Does have a history of headaches. Physical Examination: Vital Signs: Blood pressure 113/62, pulse of 50, respiratory rate 16, temperature 97, and oxygen sat uration 98% on room air. General: Mr. Brantley is lying in his hospital bed. He is in no acute distress. HEENT: He is normocephalic and atraumatic. Sclerae are anicteric. Oropharynx is pink. [place] and mo ist. Neck: Supple. Chest: Clear. Heart: Regular. Extremities: Show no clubbing, cyanosis, or edema. Neurologically: He is alert oriented to person, times, place, and situation. Follows all commands a ppropriately. In terms of cranial nerves, he is what the report says numbness in the left hemibody t hat starts at exactly the midline in the forehead, numbness also noted in the left arm compared to th e right and left thigh compared to the right side. Has no weakness on those sides. He has no asymme tries, otherwise, in terms of coordination and reflex on the left side. Otherwise, no focal deficits . Laboratory Studies: Complete blood count differential essentially unremarkable. Coagulation panel i s normal. Chemistries show mildly low sodium of 135 and, otherwise, unremarkable. Basic metabolic p rafal including liver function studies being normal, thyroid studies being normal. Urinalysis unremar kable. Back in 2021, his urine drug screen was positive for amphetamines and opiates. Assessment: Mr. Brantley is a 42-year-old patient, who has had multiple hospital admissions with v arying complaints including headache and numbness and has had multiple imaging studies of his brain. On this visit, he had a brain MRI showing no acute ischemic hemorrhagic change. He had lumbar thora cic and cervical spine MRI showing no significant abnormalities and again all blood work essentially unremarkable. The etiology of the patient's complaints do not follow an anatomical lesion or any spe cific neurological condition. Non neurological issues, perhaps psychiatric should be explored for po ssible etiology of the patient's symptoms. However, the potential for complicated migraine may be co nsidered. Plan: He may continue with aspirin 81 mg daily. Continue with medications for his depression and at tention deficit disorder and he may be discharged and follow up with Psychiatry as appropriate. He may follow up with his primary care physician and if need be for headaches follow up in my [facility]. MIKO/DEB Voice ID: [id number] Report ID: [id number]
[2023-04-08 04:28] LABS: Absolute Lymphocytes (CBC) 2.7 K/uL (0.7-4.9); Hematocrit 45.6 % (39.6-49.0); Lymphocytes % 47.9 % (15.3-44.8); MCV 81.5 fL (80-100); MPV 9.1 fL (7.6-11.3); RBC Red Blood Cell Count 5.59 M/uL (4.33-5.43)
[2023-04-08] MEDS ORDERED: LORAZEPAM 0.5 MG TABLET PO PRN (04:35)
[2023-04-08 04:55] LABS: Potassium 4.3 mEq/L (3.5-5.1)
--- NOTE | 2023-04-08 05:38 | EKG ---
Test Date: 2023-04-07 Test Time: 07:32:59 [employer] Drier: LIANA MEASUREMENT RESULTS: Intervals: Rate: 64 TN: 154 QRSD: 102 QT: 374 QTc: 385 [place]: P: 51 TN: 154 QRS: 67 T: 37 INTERPRETIVE STATEMENTS: Normal sinus rhythm Normal ECG Compared to ECG 10/13/2022 15:54:00 Sinus tachycardia no longer present Electronically Signed On 04-08-23 05:37:39 CDT by Shay Serna
[2023-04-08 08:16] VITALS: BP 110/49; TEMP 97
--- NOTE | 2023-04-08 08:53 | P.DS ---
Admission Date: 04/07/23 Discharge Date: 04/08/23 Disposition: ROUTINE DISCHARGE Discharge Condition: FAIR Reason for Admission: Left-sided numbness\weakness - Problems (1) Left sided numbness Status: Acute (2) Back pain Status: Acute Brief History of Present Illness: Patient is a 42-year-old male with a past medical history significant for ADD, anxiety disorder, depression who presented with complaint of intermittent left- sided numbness and weakness that has been ongoing for at least 3 months. Patient reported that symptoms have become worse over time. Patient also reported that she has been having neck\upper\lower back pain that has been ongoing for the past 1 year. Patient rated pain as 9/10 in severity and described pain as sharp in quality. Patient reported associated signs and symptoms of headache and poor gait. Patient denies any other signs or symptoms. Symptoms aggravated by movement and relieved by nothing. Work-up in the ED was unremarkable, CT head negative. Patient was hospitalized for further evaluation. Hospital Course: Patient placed under observation on the medical floor. MRI of the cervical spine and lumbar spine were unremarkable, no spinal canal stenosis, spinal cord involvement, no significant foraminal stenosis reported. Patient was seen and evaluated by neurology. According to neurology patient's examination did not correlate with any specific anatomic lesion or neurologic condition. Neurology suspects a conversion disorder or malingering. Echocardiogram was done which was unremarkable. Negative bubble study. He is clinically stable with chronic symptoms. He is discharged for outpatient follow-up. Vital Signs/Physical Exam: Temp Pulse Resp BP Pulse Ox 97.0 F 72 16 110/49 L 98 04/08/23 08:00 04/08/23 08:00 04/08/23 08:00 04/08/23 08:00 04/08/23 08:00 General: Alert, In no apparent distress, Oriented x3 HEENT: Mucous membr. moist/pink Neck: JVD not distended Respiratory: Clear to auscultation bilaterally, Normal air movement Cardiovascular: No edema Gastrointestinal: Normal bowel sounds, Soft and benign, Non-distended Musculoskeletal: No contractures Integumentary: No rashes, No cyanosis Neurological: Normal speech, Normal strength at 5/5 x4 extr, Cranial nerves 3-12 intact Lymphatics: No axilla or inguinal lymphadenopathy Laboratory Data at Discharge: WBC 5.60 thou/uL (4.3-10.9) 04/08/23 04:13 Hgb 15.2 g/dL (13.6-17.9) 04/08/23 04:13 Hct 45.6 % (39.6-49.0) 04/08/23 04:13 Plt Count 186 thou/uL (152-406) 04/08/23 04:13 PT 9.6 SECONDS (9.5-12.5) 04/07/23 07:39 INR 0.87 04/07/23 07:39 APTT 30.4 SECONDS (24.3-36.9) 04/07/23 07:39 Sodium 135 mEq/L (136-145) L 04/08/23 04:13 Potassium 4.3 mEq/L (3.5-5.1) D 04/08/23 04:13 BUN 13 mg/dL (7-18) 04/08/23 04:13 Creatinine 1.30 mg/dL (0.70-1.30) 04/08/23 04:13 Glucose 96 mg/dL (74-106) 04/08/23 04:13 Phosphorus 2.4 mg/dL (2.5-4.9) L 04/07/23 11:22 Magnesium 2.3 mg/dL (1.6-2.4) 04/07/23 11:22 Total Bilirubin 0.9 mg/dL (0.2-1.0) 04/07/23 07:39 AST 28 U/L (15-37) 04/07/23 07:39 ALT 63 U/L (16-61) H 04/07/23 07:39 Alkaline Phosphatase 77 U/L (45-117) 04/07/23 07:39 Triglycerides 134 mg/dL (<150) 04/08/23 04:13 Cholesterol 212 mg/dL (<200) H 04/08/23 04:13 HDL Cholesterol 56 mg/dL (40-60) 04/08/23 04:13 Cholesterol/HDL Ratio 3.79 04/08/23 04:13 Home Medications: ALPRAZolam [Xanax] 0.5 mg PO BID PRN 04/07/23 Sertraline [Zoloft] 25 mg PO DAILY 04/07/23 LORazepam [Lorazepam] 0.5 mg PO 04/08/23 Diet: AHA Activity: Ad miriam Followup: NONE,NONE [Primary Care Provider] - Time spent managing pt's care (in minutes): 33
[2023-04-08] MEDS ORDERED: POTASS/SODIUM PHOSPHATE 1 PKT POWD.PACK PO SCH (09:00)
[2023-04-08] MEDS ORDERED: SERTRALINE HCL 50 MG TAB PO SCH (09:00)
[2023-04-08] MEDS ORDERED: ASPIRIN 81 MG CHEWABLE TABLET PO SCH (09:00)
[2023-04-08] MEDS ORDERED: ENOXAPARIN 40 MG/0.4 ML SQ SCH (09:00)
--- NOTE | 2023-04-08 13:08 | ECHO ---
HEIGHT: 5 ft 7 in WEIGHT: 190 lb 0 oz DATE OF STUDY: 04/08/[address]: Satish Crockett 2-DIMENSIONAL: YES M.MODE: YES DOPPLER: YES COLOR FLOW: YES TDS: NO PORTABLE: YES DEFINITY: NO BUBBLE STUDY: YES DIAGNOSIS: SUSPECTED TRANSIENT ISCHEMIC ATTACK CARDIAC HISTORY: CATHERIZATION: NO SURGERY: NO PROSTHETIC VALVE: NO PACEMAKER: NO MEASUREMENTS (cm) DIASTOLIC (NORMALS) SYSTOLIC (NORMALS) IVSd 1.0 (0.6-1.2) LA Diam 3.7 (1.9-4.0) LVEF 57% LVIDd 5.2 (3.5-5.7) LVIDs 3.6 (2.0-3.5) %FS 30% LVPWd 1.3 (0.6-1.2) Ao Diam 2.8 (2.0-3.7) 2 DIMENSIONAL ASSESSMENT: RIGHT ATRIUM: NORMAL LEFT ATRIUM: NORMAL RIGHT VENTRICLE: NORMAL LEFT VENTRICLE: NORMAL TRICUSPID VALVE: NORMAL MITRAL VALVE: NORMAL PULMONIC VALVE: NORMAL AORTIC VALVE: NORMAL PERICARDIAL EFFUSION: NONE AORTIC ROOT: NORMAL LEFT VENTRICULAR WALL MOTION: NORMAL. DOPPLER/COLOR FLOW: NORMAL. COMMENTS: NEGATIVE BUBBLE STUDY NO PATENT FORAMEN OVALE OR ATRIAL SEPTAL DEFECT NORMAL LEFT VENTRICULAR SIZE AND FUNCTION TECHNOLOGIST: CARMEN MORALES
== END 2023-04-08 10:53 | disposition home or self-care (01) ==
LOC: ER 07:19 → ERHOLD 10:44 → 4TH 11:29
PROVIDERS: ADMIT Internal Medicine; ATTEND Internal Medicine
DX: R20.0 Anesthesia of skin (principal); R53.1 Weakness; M54.2 Cervicalgia; F32.A Depression, unspecified; F41.9 Anxiety disorder, unspecified; R51.9 Headache, unspecified; R26.9 Unspecified abnormalities of gait and mobility; N18.2 Chronic kidney disease, stage 2 (mild); R03.1 Nonspecific low blood-pressure reading
CPT/HCPCS: 93005; 93306; 85025 ×2; 80048 ×2; 36415 ×2; 83735 ×2; 84100; 85610; 80061; 80076; 85730; 84443; 81003; 83036; 84484; 84439; 70450; 70496; 70498; 71045; 70551; 72141; 72146; 72148; 97161; 99285; Q9967; J1650; G0378

== ENCOUNTER 2024-10-02 17:09 | Emergency (ER) | payer OTHER ==
--- OUTSIDE RECORDS SUMMARY | 2024-10-02 17:12 | XMS REPORT | Continuity of Care Document ---
Author Name Unknown Address [address] [place] [address] [facility] Address [address] [place] [address] Care Team Providers Care [employer] Inspector Name Role Phone PCP, PATIENT DOES NOT HAVE A Primary Care Physic hawa Unavailable Pcp, Patient Does Not Have A Attending Clinician Doctor Unassigned, [place] Attending Clinician U navailable Therapy, [facility] Covid Infusion Attending Clinician Unavailable Gavino Anderson MD Attending Clinician [phone] GAVINO ANDERSON Attending Clinician Unavailable Payers Payer Name Policy Type Policy Number Effective Date Expirati on Date Source [employer] II [id number] 2020 00:00:00 Allergies, Adverse Reactions, Alerts Allergy Name Allergy Type Status Severity Reaction(s) Onset Date Inactive Date Treating Clinician Comments Source NO KNOWN ALLERGIE S Drug Class Active [facility] Social History Social Habit Start Date Stop Date Quantity Comments Source Exposure to SARS-CoV-2 (event) Yes [facility] Sex Assigned At 1980 00:00:00 1980 00:00:00 [facility] Smoking Status Start Date Stop Date Source Tobacco smoking consumption unknown [facility] Vital Signs Vital Name Observation Time Observation Value Comments S ourleonard Systolic blood pressure 2021-07-19 17:10:00 142 mm[Hg] [facility] Diastolic blood pressure 2021-07-19 17:10:00 87 mm[Hg] [facility] Heart rate 2021-07-19 17:10:00 70 /min [facility] Body temperature 2021-07-19 17:10:00 36.89 [place] [facility] Respiratory rate 2021-07-19 17:10:00 18 /min [facility] Oxygen saturation in Arterial blood by Pulse oximetry 2021-07-19 17:10:00 100 /min [facility] Body height 2021-07-19 16:28:00 167.6 cm [facility] Body weight 2021-07-19 16:28:00 80.287 kg [facility] BMI 2021-07-19 16:28:00 28.57 kg/m2 [facility] Systolic blood pressure 2021-07-19 16:28:00 134 mm[Hg] [facility] Diastolic blood pressure 2021-07-19 16:28:00 77 mm[Hg] [facility] Heart rate 2021-07-19 16:28:00 76 /min [facility] Body temperature 2021-07-19 16:28:00 36.89 [place] [facility] Respiratory rate 2021-07-19 16:28:00 19 /min [facility] Oxygen saturation in Arterial blood by Pulse oximetry 2021-07-19 16:28:00 98 /min [facility] Procedures Procedure Date / Time Performed Performing Clinicia n Source [facility] ORDERS 2023-03-11 05:01:00 Doctor Unass igned, [place] [facility] [id number] CONSENT 2021-07-22 05:01:00 Doctor Unas signed, [place] [facility] Encounters Start Date/Time End Date/Time Encounter Type Admission Type Attending Clinicians Care Facility Care Department Encounter ID Source 2023-04-12 09:00:00 2023-04-12 09:00:00 Outpatient R [facility] [id number] [facility] 2023-03-12 00:00:00 2023-03-12 00:00:00 Telephone Pcp, [facility] Not [facility] 1..840.114 [id number] [facility] 2023-03-11 00:00:00 2023-03-11 00:00:00 Orders Only Doctor Unassigned, [place] [facility] 1.840.114 [id number] [facility] 2021-07-22 00:00:00 2021-07-22 00:00:00 Orders Only Doctor Unassigned, [place] [facility] 1.840.114 [id number] [facility] 2021-07-19 10:06:24 2021-07-19 11:06:24 Nurse Visit Therapy, Adc Covid Gavino Mcdonnell [facility] 1..840.114 [id number] [facility] 2021-07-19 11:00:00 2021-07-19 11:00:00 Outpatient GAVINO LEONARD [facility] [id number] [facility]
[2024-10-02] MEDS ORDERED: NA CHLORIDE 0.9% 1,000 ML ONE (20:06)
[2024-10-02 20:12] LABS: Absolute Eosinophils 0.1 K/uL (0-0.5); Absolute Lymphocytes (CBC) 2.4 K/uL (0.7-4.9); Absolute Monocytes 0.5 K/uL (0.1-1.3); Absolute Neutrophil 3.4 K/uL (1.8-8.0); Basophils % 0.7 % (0-1.3); Hematocrit 47.6 % (39.6-49.0); Hemoglobin 15.9 g/dL (13.6-17.9); MCH 27.7 pg (27.0-35.0); MCHC 33.4 g/dL (32.0-36.0); MPV 9.9 fL (7.6-11.3); Monocytes % 7.7 % (3.3-12.3); Neutrophils % 53.6 % (41.7-73.7); Nucleated Red Blood Cells % 0.2 % (0-0); Platelets 198 thou/uL (152-406); RBC Red Blood Cell Count 5.73 M/uL (4.33-5.43); Red Cell Distribution Width 13.1 % (12.1-15.2)
--- NOTE | 2024-10-02 20:23 | ER ---
Nurse's Notes [facility] Name: Basil Brantley Age: 44 yrs Sex: Male : 1980 Arrival Date: 10/02/2024 Time: 17:09 Bed 25 Private MD: Diagnosis: Cellulitis of back [any part except buttock] Presentation: 10/02 17:46 Chief complaint: Patient states: I\T\D x 2 to back one week ago at the [place]. Pt reports ss increased drainage since Wednesday. Coronavirus screen: Client denies travel out of the [place] in the last 14 days. Ebola Screen: Patient denies exposure to infectious person. Patient denies travel to an Ebola-affected area in the 21 days before illness onset. Initial Sepsis Screen: Does the patient meet any 2 criteria? No. Patient's initial sepsis screen is negative. Does the patient have a suspected source of infection? No. Patient's initial sepsis screen is negative. Risk Assessment: Do you want to hurt yourself or someone else? Patient reports no desire to harm self or others. Onset of symptoms was September 29, 2024. 17:46 Method Of Arrival: Ambulatory ss 17:46 Acuity: ELENA 3 ss Historical: - Allergies: 17:48 Epinephrine; ss - PMHx: 17:48 ADD; I\T\D (ADD); ss - PSHx: 17:48 knee; Nose; perirectal abscess SX; Shoulder; ss - Immunization history:: Adult Immunizations unknown. - Infectious Disease History:: Denies. - Social history:: Smoking status: unknown. Screenin:46 [facility] ED Fall Risk Assessment (Adult) History of falling in the last 3 months, vc1 including since admission No falls in past 3 months (0 pts) Confusion or Disorientation No (0 pts) Intoxicated or Sedated No (0 pts) Impaired Gait No (0 pts) Mobility Assist Device Used No (0 pt) Altered Elimination No (0 pt) Score/Fall Risk Level 0 - 2 = Low Risk Oriented to surroundings, Maintained a safe environment, Educated pt \T\ family on fall prevention, incl call for assistance when getting out of bed. Abuse screen: Denies threats or abuse. Nutritional screening: No deficits noted. Tuberculosis screening: No symptoms or risk factors identified. Assessment: 17:49 Reassessment: DONYA Calabrese assessing patient at this time in triage room. ss 19:30 General: Appears in no apparent distress. comfortable, well groomed, well developed, vc1 well nourished, Behavior is calm, cooperative, appropriate for age. Pain: Complains of pain in back. Neuro: Level of Consciousness is awake, alert, obeys commands, Oriented to person, place, time, situation, Appropriate for age. Cardiovascular: Heart tones S1 S2 present Capillary refill < 3 seconds Patient's skin is warm and dry. Respiratory: Airway is patent Respiratory effort is even, unlabored, Respiratory pattern is regular, symmetrical, Breath sounds are clear bilaterally. GI: No deficits noted. No signs and/or symptoms were reported involving the gastrointestinal system. : No deficits noted. No signs and/or symptoms were reported regarding the genitourinary system. EENT: No deficits noted. No signs and/or symptoms were reported regarding the EENT system. Derm: Wound noted Other: surgical wound healing to back, sutures intact, serosanguinous drainage noted. 19:30 Musculoskeletal: Circulation, motion, and sensation intact. Range of motion: intact in vc1 all extremities. Vital Signs: 17:46 BP 165 / 96; Pulse 87; Resp 16; Temp 98.8(O); Pulse Ox 98% on R/A; Weight 99.79 kg; ss Height 5 ft. 7 in. ; Pain 5/10; 19:30 BP 124 / 76; Pulse 65; Resp 18; Pulse Ox 97% ; vc1 20:30 BP 118 / 82; Pulse 63; Resp 17; Pulse Ox 96% ; vc1 17:46 Body Mass Index 34.46 (99.79 kg, 170.18 cm) ss 17:46 Pain Scale: Adult ss ED Course: 17:12 Patient arrived in ED. mr 17:24 Libia Mart [facility]-C [facility] sb4 17:24 Rafael Simmons MD is Attending Physician. sb4 17:48 Triage completed. ss 17:48 Arm band placed on right wrist. ss 19:57 BMP Sent. vk 19:57 CBC with Diff Sent. vk 19:57 Inserted saline lock: 20 gauge in right antecubital area, using aseptic technique. vk Blood collected. Flushed with 10 mL NS. 19:57 Initial lab(s) drawn, by hi, sent to lab. vk 20:00 Patient has correct armband on for positive identification. Bed in low position. Call vc1 light in reach. Pulse ox on. NIBP on. 20:46 Zahira Johnson, RN is Primary Nurse. vc1 20:49 No provider procedures requiring assistance completed. IV discontinued, intact, vc1 bleeding controlled, No redness/swelling at site. Pressure dressing applied. 20:50 Provided Education on: f/u with PCP, watch for signs of infection. vc1 Administered Medications: 20:17 Drug: NS 0.9% IV 1000 ml IV at 1 bolus Per protocol; to be given as a bolus over 60 vc1 minutes Route: IV; Rate: 1 bolus; Site: left antecubital; 20:46 Follow up: IV Status: Completed infusion; IV Intake: 300ml vc1 20:46 Drug: Cephalexin PO 500 mg PO once Route: PO; vc1 20:46 Follow up: Response: Medication administered at discharge. vc1 Medication: 20:47 VIS not applicable for this client. vc1 Intake: 20:46 IV: 300ml; Total: 300ml. vc1 Outcome: 20:22 Discharge ordered by MD. sb4 20:49 Discharged to home ambulatory, vc1 20:49 Condition: good 20:49 Discharge instructions given to patient, Instructed on discharge instructions, follow up and referral plans. medication usage, Demonstrated understanding of instructions, follow-up care, medications, Prescriptions given X 1, 20:51 Patient left the ED. vc1 Signatures: SanchezLali smith, Reg Reg Chiara Palomo RN RN ss Zahira Johnson, RN RN vc1 Libia Mart PA-C PA-C sb4 Kruse, Vivian Corrections: (The following items were deleted from the chart) 17:49 17:48 Allergies: No Known Allergies; ss ss
--- NOTE | 2024-10-02 20:23 | EDPHYS ---
Physician Documentation [facility] Name: Basil Brantley Age: 44 yrs Sex: Male : 1980 Arrival Date: 10/02/2024 Time: 17:09 Bed 25 Private MD: ED Physician Rafael Simmons HPI: 10/02 17:52 This 44 yrs old Male presents to ER via Ambulatory with complaints of Wound Infection, sb4 Fever. 17:52 Patient states that he had to cyst on his back "cut out "1 week ago. He states that sb4 over the weekend, he noticed increased drainage out of the incision site and has started to feel fatigued and like he is developing an infection. He states that he was not put on any antibiotics prophylactically. States that he feels similar to when he has had infections in the past. [facility] Historical: - Allergies: 17:48 Epinephrine; ss - PMHx: 17:48 ADD; I\\T\\D (ADD); ss - PSHx: 17:48 knee; Nose; perirectal abscess SX; Shoulder; ss - Immunization history:: Adult Immunizations unknown. - Infectious Disease History:: Denies. - Social history:: Smoking status: unknown. ROS: 17:52 Constitutional: Positive for fatigue, fever, malaise, sb4 17:53 Skin: Positive for per HPI, sb4 17:53 All other systems are negative, Exam: 17:53 Constitutional: This is a well developed, well nourished patient who is awake, alert, sb4 and in no acute distress. Head/Face: Normocephalic, atraumatic. Eyes: Extra-ocular motions intact. Periorbital areas with no swelling, redness, or edema. ENT: Mucous membranes moist. MS/ Extremity: Pulses equal, no cyanosis. Neurovascular intact. Full, normal range of motion. 17:53 Skin: Wound recheck: Suture laceration closure: no evidence of dehiscence, mild drainage, mild erythema, mild swelling, 2 4 cm incisions with sutures intact left upper back, Vital Signs: 17:46 BP 165 / 96; Pulse 87; Resp 16; Temp 98.8(O); Pulse Ox 98% on R/A; Weight 99.79 kg; ss Height 5 ft. 7 in. ; Pain 5/10; 19:30 BP 124 / 76; Pulse 65; Resp 18; Pulse Ox 97% ; vc1 20:30 BP 118 / 82; Pulse 63; Resp 17; Pulse Ox 96% ; vc1 17:46 Body Mass Index 34.46 (99.79 kg, 170.18 cm) ss 17:46 Pain Scale: Adult ss MDM: 17:46 Medical Screening Exam initiated sb4 20:22 Data reviewed: vital signs, nurses notes, lab test result(s), and as a result, I will sb4 discharge patient. Counseling: I had a detailed discussion with the patient and/or guardian regarding the historical points, exam findings, and any diagnostic results supporting the discharge/admit diagnosis, lab results, the need for outpatient follow up, for definitive care, to return to the emergency department if symptoms worsen or persist or if there are any questions or concerns that arise at home. 10/02 17:51 Order name: CBC with Diff; Complete Time: 20:22 sb4 10/02 17:51 Order name: BMP; Complete Time: 20:17 sb4 10/02 17:51 Order name: Wound Care; Complete Time: 20:17 sb4 Administered Medications: 20:17 Drug: NS 0.9% IV 1000 ml IV at 1 bolus Per protocol; to be given as a bolus over 60 vc1 minutes Route: IV; Rate: 1 bolus; Site: left antecubital; 20:46 Follow up: IV Status: Completed infusion; IV Intake: 300ml vc1 20:46 Drug: Cephalexin PO 500 mg PO once Route: PO; vc1 20:46 Follow up: Response: Medication administered at discharge. vc1 Disposition: 20:22 Chart complete. sb4 Disposition Summary: 10/02/24 20:22 Discharge Ordered Notes: Location: Home sb4 Problem: new sb4 Symptoms: have improved sb4 Condition: Stable sb4 Diagnosis - Cellulitis of back [any part except buttock] sb4 Followup: sb4 - With: Private Physician - When: 1 week - Reason: Wound Recheck Discharge Instructions: - Discharge Summary Sheet sb4 - Cellulitis, Adult sb4 Forms: - Antibiotic Education sb4 - Patient Portal Instructions sb4 - Leadership Thank You Letter sb4 Prescriptions: - Cephalexin 500 mg Oral Capsule - take 1 capsule ORAL route every 6 hours for 10 days; 40 capsule; Refills: 0, sb4 Product Selection Permitted Signatures: Dispatcher [employer] EDChiara Patino RN RN ss Zahira Johnson RN RN vc1 Libia Mart PA-C PA-C sb4 Corrections: (The following items were deleted from the chart) 17:49 17:48 Allergies: No Known Allergies; [facility] 17:52 17:52 CBC+H.LAB.BRZ ordered. EDMS EDMS 17:52 17:52 BASIC METABOLIC PANEL+C.LAB.BRZ ordered. EDMS EDMS 17:53 17:52 Skin: Positive for laceration(s), of the back, sb4 sb4
[2024-10-02] MEDS ORDERED: CEPHALEXIN 250 MG CAP ONE (20:36)
[2024-10-02 21:14] VITALS: TEMP 98.8
[2024-10-02 21:16] VITALS: BP 118/82; O2SAT 96
== END 2024-10-02 20:51 | disposition home or self-care (01) ==
LOC: ER 17:09
DX: L03.312 Cellulitis of back [any part except buttock and flank] (principal)
CPT/HCPCS: 85025; 80048; 36415; J7030; 99284